=== PATIENT | female | born 1995 | race Caucasian/White ===

== ENCOUNTER 2023-01-22 08:39 | Inpatient (IN) | payer BC, SELFPAY ==
[2023-01-22] VITALS (57 sets, daily range): BP systolic 82–130; BP diastolic 49–102; PULSE 76–107; RESP 15–36; TEMP 30.9–36.5; O2SAT 95–100; BMI 19.3
--- NOTE | ~2023-01-22 | CT_ITS ---
EXAMINATION: CTA chest PE abdomen pel DATE: 01/22/2023 10:19 INDICATION: Patient found unresponsive TECHNIQUE: Computed tomography angiography (CTA) of the chest was performed with 100 mL Omnipaque-350 intravenous contrast timed to evaluate the pulmonary arteries. Subsequent postcontrast images of the abdomen and pelvis are obtained. Coronal maximum intensity projection 3D-reconstructions were create d by the technologist. The dose-length product (DLP) was 661.48 mGy-cm. Automated exposure control an d iterative reconstruction technique were employed. COMPARISON: None. FINDINGS: CTA CHEST: The pulmonary arteries are well-opacified. No pulmonary embolism is identified. There are airspace opacities and volume loss in the left lower lobe. No pleural effusion or pneumothorax. No pa thologically enlarged thoracic lymph nodes are identified. The heart size is normal. The endotracheal tube is approximately 4 cm above the jose manuel. A small amount of in subcutaneous gas in the left neck likely relates to central venous catheter insertion. ABDOMEN/PELVIS CT: There is mild periportal edema of the liver which is nonspecific. The spleen, panc reas, gallbladder, and adrenal glands are normal. The kidneys are unremarkable. No pathologically enl arged abdominal or pelvic lymph nodes are identified. There is no free intraperitoneal gas. There are gas and fluid-filled loops of mildly distended large and small bowel. There is a Almodovar catheter in t he bladder. The nasogastric tube is in the stomach. There is subcutaneous gas in the left inguinal re gion as well as gas in the left femoral vein, likely related to attempted central venous catheter ins ertion. There is a tiny focus of enhancement or hyperattenuation in the midline pelvis abutting the u rethra (image 205). IMPRESSION: 1. Volume loss and airspace opacities of the left lower lobe, likely aspiration pneumonia. 2. Mildly distended large and small bowel, likely ileus. 3. Mild periportal edema of the liver which is nonspecific. 4. Tiny focus of enhancement or hyperattenuation and midline pelvis abutting the urethra which could reflect inspissated material in a Bartholin's gland cyst or urethral diverticulum or possibly small p seudoaneurysm. 5. No pulmonary embolus identified. Reviewed, dictated and finalized at location F. REHENSIVE OPHTHALMOLOGIST IMPRESSION: 1. Volume loss and airspace opacities of the left lower lobe, likely aspiration pneumonia. 2. Mildly distended large and small bowel, likely ileus. 3. Mild periportal edema of the liver which is nonspecific. 4. Tiny focus of enhancement or hyperattenuation and midline pelvis abutting th e urethra which could reflect inspissated material in a Bartholin's gland cyst or urethral diverticulum or possibly small pseudoaneurysm. 5. No pulmonary embolus identified.
--- NOTE | ~2023-01-22 | XR_ITS ---
EXAMINATION: XR chest 1V portable INDICATION: Respiratory failure TECHNIQUE: Portable AP chest at 0522 hours COMPARISON: 01/24/2023 FINDINGS: The endotracheal tube ends approximately 4.2 cm above the jose manuel. Nasogastric tube is in th e stomach. A left internal jugular central venous catheter ends with its tip in the midsuperior vena cava. Retrocardiac airspace opacity persists but has improved.. IMPRESSION: 1. Improved retrocardiac airspace opacities, likely pneumonia. Reviewed, dictated and finalized at location F. STIGATION DIVISION LIEUTENANT
--- NOTE | ~2023-01-22 | XR_ITS ---
EXAMINATION: XR chest 1V portable INDICATION: Respiratory failure TECHNIQUE: Portable AP chest at 0446 hours COMPARISON: 01/23/2023 FINDINGS: The endotracheal tube ends approximately 4.4 cm above the jose manuel. The nasogastric tube is i n the stomach. A left internal jugular central venous catheter ends with its tip in the midsuperior v asif cava. There are retrocardiac airspace opacities. No pleural effusion or pneumothorax. The cardiom ediastinal silhouette is normal. IMPRESSION: 1. Retrocardiac airspace opacities, likely pneumonia. Reviewed, dictated and finalized at location F. GEOGRAPHER
--- NOTE | ~2023-01-22 | CT_ITS ---
EXAMINATION: CT cervical spine wo con DATE: 01/22/2023 10:17 INDICATION: Unresponsive, possible fall TECHNIQUE: Computed tomography (CT) of the cervical spine was performed without intravenous contrast. The dose-length product (DLP) was 176.22 mGy-cm. Automated exposure control and iterative reconstruc tion technique were employed. COMPARISON: None FINDINGS: Bone alignment is normal. There is reversal of the normal cervical lordosis. The odontoid p rocess is intact. There is no fracture. The vertebral body heights and intervertebral disc spaces are normal. A small amount of subcutaneous gas in the left neck is likely related to central line insert ion. IMPRESSION: 1. No acute osseous abnormality. Reviewed, dictated and finalized at location F. RAFT ENGINE MECHANIC SUPERVISOR
--- NOTE | ~2023-01-22 | XR_ITS ---
EXAMINATION: XR chest ET placement INDICATION: Respiratory failure TECHNIQUE: Portable AP chest at 0912 hours COMPARISON: 08/03/2003 FINDINGS: The endotracheal tube ends approximately 4.4 cm above the jose manuel. A left internal jugular c entral venous catheter ends with its tip in the superior vena cava. The tip of the nasogastric tube i nto the distal esophagus. The tube has been advanced into the stomach at the time of interpretation. The lungs are free of acute opacities. No pleural effusion or pneumothorax. The cardiomediastinal yanna houette is normal. IMPRESSION: 1. No acute cardiopulmonary abnormality. Endotracheal tube in adequate position. Reviewed, dictated and finalized at location F. LLATE CONFEREE IMPRESSION: 1. No acute cardiopulmonary abnormality. Endotracheal tube in adequate position .
--- NOTE | ~2023-01-22 | XR_ITS ---
EXAMINATION: XR chest 1V portable INDICATION: Respiratory failure TECHNIQUE: Portable AP chest at 0530 hours COMPARISON: 01/22/2023 FINDINGS: The endotracheal tube ends approximately 4.3 cm above the jose manuel. The nasogastric tube is f ollowed as far as the stomach. Its tip is beyond the inferior margin of the radiograph. A left internal medicine nurse practitioner al jugular central venous catheter ends with its tip in the superior vena cava. The lungs are free of acute opacities. No pleural effusion or pneumothorax. IMPRESSION: 1. No acute cardiopulmonary abnormality. Reviewed, dictated and finalized at location F. ONAL TRUCK DRIVER
--- NOTE | ~2023-01-22 | CT_ITS ---
EXAMINATION: CT brain wo con INDICATION: Altered mental status COMPARISON: 01/22/2023 TECHNIQUE: Standard unenhanced head CT. The dose-length product (DLP) was 605.33 mGy-cm. The mA was a djusted according to patient size. Iterative reconstruction technique was employed. FINDINGS: There is widespread cerebral edema and loss of almeida-white matter differentiation is the hosea ateral parietal occipital lobes, the frontal lobes, and posteriorly in the temporal lobes. There is m ass effect on the posterior horns of the lateral ventricles. There is no midline shift. The basal cis terns are patent. The orbits are normal. There is mild mucosal thickening of the paranasal sinuses. IMPRESSION: 1. Interval development of widespread cerebral edema and loss of almeida-white matter differentiation as detailed above, consistent with anoxic brain injury. These findings were discussed with Dr. Bruce parnell MD at 0950 hours on 01/25/2023. Reviewed, dictated and finalized at location A. ROOM COURIER IMPRESSION: 1. Interval development of widespread cerebral edema and loss of almeida-white mat ter differentiation as detailed above, consistent with anoxic brain injury. The se findings were discussed with Dr. Bruce Gomes MD at 0950 hours on 3.
--- NOTE | ~2023-01-22 | CT_ITS ---
EXAMINATION: CT brain wo con INDICATION: Unresponsive COMPARISON: None TECHNIQUE: Standard unenhanced head CT. The dose-length product (DLP) was 1059.33 mGy-cm. The mA was adjusted according to patient size. Iterative reconstruction technique was employed. FINDINGS: Motion artifact limits the examination. No intracranial hemorrhage, acute infarction, or ab normal mass lesion. The ventricles are normal. No abnormal mass effect or midline shift. The almeida-whi te matter differentiation is normal. The basal cisterns are patent. The orbits are normal. The parana luc sinuses, mastoids and calvarium are normal. IMPRESSION: 1. No acute intracranial abnormality identified, motion artifact limits the examination. Reviewed, dictated and finalized at location F. TIONAL EVALUATOR IMPRESSION: 1. No acute intracranial abnormality identified, motion artifact limits the exa mination.
--- NOTE | ~2023-01-22 | XR_ITS ---
EXAMINATION: XR tibia fibula LT 2V INDICATION: Status post intraosseous medication administration TECHNIQUE: Two views of the left tibia and fibula are obtained. COMPARISON: None available FINDINGS: No fracture, dislocation, or subluxation. The bones, soft tissues, and joint spaces are nor mal. IMPRESSION: 1. No acute osseous abnormality. Reviewed, dictated and finalized at location F. MOTOR OPERATOR
--- NOTE | ~2023-01-22 | XR_ITS ---
EXAMINATION: XR abdomen gastric tube insert INDICATION: Respiratory failure TECHNIQUE: Portable AP KUB-NG at 0912 hours COMPARISON: None available FINDINGS: The NG tube is in the stomach. There are gas-filled loops of nondilated large and small bow el. The lung bases are clear. IMPRESSION: 1. NG tube in the stomach. Reviewed, dictated and finalized at location F. TIONSHIP EXECUTIVE IMPRESSION: 1. NG tube in the stomach.
--- NOTE | 2023-01-22 09:01 | ECG_ITS ---
Measurements Intervals [place] Rate: 78 P: 77 SC: 179 QRS: 3 QRSD: 113 T: 10 QT: 455 QTc: 521 Interpretive Statements SINUS RHYTHM INCOMPLETE RIGHT BUNDLE BRANCH BLOCK BORDERLINE T WAVE ABNORMALITY- INFERIOR LEADS PROLONGED QT INTERVAL BASELINE ARTIFACT- I, II, III, AVF, V6 ABNORMAL ECG NO PREVIOUS ECG AVAILABLE FOR COMPARISON Electronically Signed On 01-22-2023 9:45:52 TINSEL MACHINE OPERATOR by Jason Ann D.O.
--- NOTE | 2023-01-22 09:13 | PC.NURSE ---
Per central line is OK to use
--- NOTE | 2023-01-22 09:14 | ED.GENADULT ---
HPI - General Adult General Chief complaint: Cardiac Arrest/CPR Stated complaint: cardiac arrest ROSC History of Present Illness HPI narrative: 27-year-old female presents to the emergency department after cardiac arrest and asystole. Patient was at the [facility] and had been seen 5 minutes prior. They went to check on the patient and found her unresponsive in her cell. EMS was called. Patient was treated with multiple rounds of Narcan with no response. patient was found to be in asystole and was given epi. Patient had ROSC. Mother states that the patient does have a prior history of heroin found abuse previously had an overdose due to a baggy of methamphetamine leaking in her vagina Related Data Home Medications Medication Instructions Recorded Confirmed No Home Medications 01/22/23 01/22/23 Allergies Allergy/AdvReac Type Severity Reaction Status Date / Time No Known Allergies Allergy Verified 01/22/23 10:19 Review of Systems Review of Systems: ROS unobtainable: Yes unobtainable due to mental status [facility] Past Medical History Medical History (Updated 01/22/23 @ 18:28 by Honey Fink PA-C) Asthma Surgical History Surgical History (Updated 01/22/23 @ 18:13 by Honey Fink PA-C) No history of previous surgery Family History Family History (Updated 01/22/23 @ 18:13 by Honey Fink PA-C) Other Substance abuse Social History Social History (Updated 01/22/23 @ 18:14 by Honey Fink PA-C) Social History: Surrogate medical decision maker: Marylu Gonzalez, mother ([phone]). Code status: Full code. Smoking status: Current every day smoker Alcohol intake: current Substance use: current Substance use type: marijuana, heroin and methamphetamine Other substance usage details: fentanyl last overdose 1 month ago Spiritual care concerns: No Exam Narrative: APPEARANCE: unresponsive. HEAD: normocephalic, atraumatic. EYES: fixed NOSE: Normal no drainage EARS:TMS clear with good light reflex. THROAT: Pharynx clear, no exudate. NECK: Supple. No adenopathy, no masses. RESPIRATORY: Airway patent, respirations nonlabored. Clear to auscultation bilaterally, no rales, rhonchi, wheezing. CARDIOVASCULAR: Regular rate and rhythm without murmurs rubs or gallops. ABDOMINAL: soft normal bowel sounds MUSCULOSKELETAL: Moves all extremities. Strength/ROM intact, No edema, No calf tenderness. NEURO: Alert. Cranial nerves II through XII intact. Course Course Emergency Course: 27-year-old female presenting to the emergency department after ROSC. patient was intubated upon arrival to the Emergency department. Patient did have an IO in her left tib fib and a central line was placed in her left IJ. X-ray confirmed placement of the central line and the ET tube. Vaginal speculum exam showed no foreign bodies within the vagina. Patient does have a history of vaginal packing with illicit substances. Patient's drug screen was positive for methamphetamine. CTA head and neck were negative. CT chest and pelvis showed possible aspiration pneumonia. CT abdomen pelvis also made reference to air within the left femoral vein. I made no attempts for central line placement other than the left IJ. case discussed with the mascara molder and with the hospitalist the patient was accepted for admission to the ICU. Vital Signs Vital signs: Vital Signs Temperature 87.6 F L 01/22/23 08:36 Pulse Rate 76 01/22/23 08:36 Respiratory Rate 15 01/22/23 08:36 Blood Pressure 82/49 L 01/22/23 08:36 Pulse Oximetry 100 01/22/23 08:36 Oxygen Delivery Bag Valve Mask 01/22/23 08:36 Oxygen Flow Rate 25 01/22/23 08:36 Temperature 97.1 F L 01/22/23 16:09 Pulse Rate 93 01/22/23 17:24 Respiratory Rate 24 H 01/22/23 17:08 Blood Pressure 114/90 01/22/23 16:09 Pulse Oximetry 100 01/22/23 17:24 Oxygen Delivery Mechanical Ventilation 01/22/23 17:2
[2023-01-22 09:26] LABS: Basophils Absolute Auto 0.1 K/mm3 (0.0-0.1); Basophils Percent Auto 0.3 % (0.2-1.2); Eosinophils Percent Auto 0.2 % (0-4.4); Hematocrit 42.9 % (37.0-47.0); Hemoglobin 12.4 g/dL (12.0-15.0); Immature Granulocyte Absolute 0.71 K/mm3 (0.00-0.031); Immature Granulocyte Percent A 2.7 % (0-0.5); Lymphocytes Absolute Auto 1.49 K/mm3 (0.9-3.2); Lymphocytes Percent Auto 5.8 % (18.3-44.2); Mean Corpuscular HGB Conc 28.9 g/dl (32-36); Mean Corpuscular Volume 103.6 fl (80-100); Mean Platelet Volume 9.9 fl (7.4-10.4); Monocytes Absolute Auto 1.2 K/mm3 (0.1-0.6); Monocytes Percent Auto 4.6 % (2.6-8.5); Neutrophils Absolute Auto 22.4 K/mm3 (1.3-6.7); Neutrophils Percent Auto 86.4 % (45.5-73.1); Platelet Count Result 265 k/mm3 (150-375); Red Blood Count 4.14 M/mm3 (4.2-5.4); White Blood Count 25.9 K/mm3 (4.5-10.0)
[2023-01-22 09:36] LABS: INR 1.6
[2023-01-22 09:37] LABS: Partial Thromboplastin Time 36.9 SECONDS (22.3-36.8)
[2023-01-22] MEDS: SODIUM CHLORIDE 0.9% IV 1,000 ML 999 ML IV CONT (09:37)
[2023-01-22 09:41] LABS: Alanine Aminotransferase 440 U/L (6-35); Albumin Level 3.6 g/dL (3.5-5.1); Alkaline Phosphatase 73 U/L (38-126); Anion Gap 26 mmol/L (8-16); Aspartate Amino Transferase 466 U/L (14-36); Bilirubin,Total 0.5 mg/dL (0.2-1.3); Blood Urea Nitrogen 22 mg/dL (7-17); CRP < 0.5 mg/dL (<1.0); Calcium 6.9 mg/dL (8.4-10.2); Carbon Dioxide 8 mmol/L (22-30); Chloride 108 mmol/L (98-107); Estimated CRCL calculation 26 ml/min; Estimated Glomerular Filt Rate 22; Glucose 139 mg/dL (65-110); Potassium 5.4 mmol/L (3.4-5.0); Sodium 142 mmol/L (137-145)
[2023-01-22 09:52] LABS: Platelet Estimate Adequate (Adequate)
--- NOTE | 2023-01-22 09:52 | ECG_ITS ---
Measurements Intervals [place] Rate: 92 P: 86 IN: 148 QRS: 27 QRSD: 141 T: -6 QT: 404 QTc: 500 Interpretive Statements SINUS RHYTHM ATRIAL TRIPLET RIGHT BUNDLE BRANCH BLOCK PROLONGED QT INTERVAL BASELINE ARTIFACT- I, II, III, AVF, V3-V6 ABNORMAL ECG COMPARED TO ECG 01/22/2023 08:49:47 RIGHT BUNDLE-BRANCH BLOCK NOW PRESENT Electronically Signed On 01-22-2023 11:04:47 BOARDING MACHINE OPERATOR by Jason Ann D.O.
[2023-01-22 09:53] LABS: Crenated RBC 2+ (NORMAL); Lactic Acid Reflex 11.7 mmol/L (0.7-2.0); Schistocytes None Seen (NORMAL); Troponin I 0.246 ng/mL (0.000-0.034)
[2023-01-22 10:10] LABS: Barbiturate Screen Urine Negative (Negative); Benzodiazepines Screen Urine Negative (Negative); Cannabinoid Screen Urine Negative (Negative); Cocaine Screen Urine Negative (Negative); Methadone Screen Urine Negative (Negative); Opiate Screen Urine Negative (Negative); Phencyclidine Screen Urine Negative (Negative)
[2023-01-22 10:10] LABS: Erythrocyte Sedimentation Rate 2 mm/hr (0-20); Magnesium 2.2 mg/dL (1.6-2.3)
[2023-01-22 10:15] LABS: Appearance Urine Cloudy (Clear); Bacteria Urine 4+ /hpf; Bilirubin Urine Negative (Negative); Blood Urine 3+ (Negative); Color Urine Yellow (Yellow); Glucose Urine UA Trace mg/dL (Negative); Ketones Urine Trace mg/dL (Negative); Leukocyte Esterase Ur 2+ LEU/UL (Negative); Need Manual Microscopic Reviewed; Nitrate Urine Negative (Negative); Protein Urine 3+ mg/dL (Negative); RBC Urine 0-2 /hpf (0-2); Specific Grav Ur 1.012 (1.001-1.035); Squamous Epithelial Cell Urine Few /hpf (Few); Urobilinogen Urine 0.2 mg/dL (<2.0); WBC Urine 51-100 /hpf
[2023-01-22 10:17] LABS: Add Urine Microscopic? YES
[2023-01-22] MEDS: PROPOFOL IV EMULSION 100 ML 1.64 MG IV CONT (10:31)
[2023-01-22 10:34] LABS: Procalcitonin 2.5 ng/mL
[2023-01-22] MEDS: SODIUM CHLORIDE 0.9% IV 1,600 ML/1,000 ML BAG 999 ML IV CONT ×2 (10:38→12:13)
[2023-01-22] MEDS: RAPID SEQUENCE INTUBATION KIT 1 EACH (10:39)
[2023-01-22 10:40] LABS: Triglycerides 65 mg/dL (<150)
[2023-01-22] MEDS: CALCIUM GLUC 2,000 MG/NS 100ML 2,000 MG/100 ML BAG 100 MG IVPB (10:40)
[2023-01-22 10:54] LABS: Creatine Kinase 4239 U/L (30-135)
[2023-01-22 11:02] LABS: Glucose Point of Care 122 mg/dl (65-105)
--- NOTE | 2023-01-22 11:03 | PC.NURSE ---
Upon arrival pt had Igel in place with bag valve mask. 0842: Blood glucose 132 0844: Femoral pulse check, weak 0845:20 Etomidate 0845: 100 Succlycoline 0846: ETT placed 7.5 22 0849: OG placed 55 0855: Temp Cath placement 0900: Central line placement 0904: Labs drawn 0920: IO Removal
[2023-01-22 11:04] LABS: Amphetamine Screen Urine Positive (Negative)
[2023-01-22 11:09] LABS: Alveolar/Arterial O2 Gradient 351.6 mmHg; Base Excess ABG -19.9 mEq/l (+/-2.0); Carboxyhemoglobin 0.2 % THb (0-2.0); Fractional Inspired Oxygen 100 %; HCO3 ABG 8.9 mEq/l (22.0-26.0); Methemoglobin ABG 0.4 %THb (0-1.5); Oxygen Content ABG 20.5 %vol (16.0-22.0); Oxygen Saturation ABG 99.6 % (95.0-100.0); Oxyhemoglobin 98.6 % THb (90.0-100.0); PCO2 ABG 30.6 mmHg (35.0-45.0); PO2 ABG 374.2 mmHg (80.0-100.0); PO2 FiO2 Ratio Arterial Blood 3.74 %; Reduced Hemoglobin 0.8 %THb (0-5.0); Total Hemoglobin 14.1 g/dL (12.0-18.0)
[2023-01-22 11:11] LABS: Device VENTILATOR; Site Drawn RIGHT BRACHIAL; pH ABG 7.082 (7.350-7.450)
[2023-01-22 11:12] LABS: Arterial Blood Gas PEEP 5 cmH2O; Arterial Blood Gas Tidal Volume 350 ml; Arterial Blood Gas Vent Mode CMV; Arterial Blood Gas Ventilator rate 20 /MIN
[2023-01-22 11:19] LABS: Glucose Point of Care 112 mg/dl (65-105)
[2023-01-22] MEDS: metroNIDAZOLE 500 MG/ISO 100ML 500 MG/100 ML BAG 100 MG IVPB (12:16)
[2023-01-22 12:23] LABS: Reflex Lactic Acid Yes or No Add Lactic
--- NOTE | 2023-01-22 12:45 | ADMGEN ---
This patient, Diane Gonzalez, was admitted to Intensive Care Unit-5. Patient/family oriented to hospital policies and general routines including ID bracelet, bed and alarms, visiting hours, pain management, procedures, bathroom and other care routines, personal items, smoking policy, room service/diet, and visiting hours. Information on how to activate the Rapid Response Team has been discussed. Patient/Family are encouraged to report perceived risks to care and to ask questions if they do not understand what they are told or what they should do.
--- NOTE | 2023-01-22 13:16 | WPDCNINT ---
Assessment and Plan Assessment and plan (1) Cardiac arrest: Code(s): I46.9 - Cardiac arrest, cause unspecified Status: Acute Assessment and Plan: Unclear etiology but most likely drug abuse or overdose. Patient was also hypoglycemic at the presentation side although the hypoglycemia has resolved at this time. CTA of the chest is negative for PE EKG reviewed shows prolonged QT. will repeat EKG this time to reassess QT interval Treatment of sepsis as below Check echocardiogram, aspirin TTM protocol for anoxic brain injury ICU telemetry monitoring (2) Sepsis: Code(s): A41.9 - Sepsis, unspecified organism Status: Acute Assessment and Plan: Sepsis secondary to aspiration pneumonia and UTI Continue IV fluids. Not requiring vasopressors at this time Urine and blood culture sent Empiric Zosyn to cover for both (3) Aspiration pneumonia: Code(s): J69.0 - Pneumonitis due to inhalation of food and vomit Status: Acute Assessment and Plan: See above (4) Anoxic brain injury: Code(s): G93.1 - Anoxic brain damage, not elsewhere classified Status: Acute Assessment and Plan: Patient comatose on arrival to ER. On holding sedation patient does not do any purposeful movement suggestive of anoxic brain injury. Although there is no proven benefit TTM protocol in in cardiac arrest from non shockable rhythm will proceed with TTM protocol and keep temperature less than 36 C for next 24 hours as long as patient tolerates. Propofol ordered for sedation. May need paralytic Will reassess after rewarming (5) Acute kidney injury: Code(s): N17.9 - Acute kidney failure, unspecified Status: Acute Assessment and Plan: Acute kidney injury likely secondary to cardiac arrest hypotension and rhabdomyolysis Check urine electrolytes CT scan of abdomen does not show any hydronephrosis Monitor urine output electrolytes and creatinine IV fluids for the rhabdomyolysis Bicarb for metabolic acidosis (6) Rhabdomyolysis: Code(s): M62.82 - Rhabdomyolysis Status: Acute Assessment and Plan: See above (7) Polysubstance abuse: Code(s): F19.10 - Other psychoactive substance abuse, uncomplicated Status: Acute Assessment and Plan: History of opioid abuse and urine drug screen positive for amphetamines Monitor at this time supportive care (8) Elevated troponin: Code(s): R79.89 - Other specified abnormal findings of blood chemistry Status: Acute Assessment and Plan: Elevated troponin likely secondary to cardiac arrest CPR and respiratory failure EKG reviewed Add aspirin Check echocardiogram (9) Metabolic acidosis: Code(s): E87.20 - Acidosis, unspecified Status: Acute Assessment and Plan: IV fluids with bicarb (10) Electrolyte abnormality: Code(s): E87.8 - Other disorders of electrolyte and fluid balance, not elsewhere classified Status: Acute Assessment and Plan: Elevated potassium treated with IV fluids. Recheck level now IV fluids changed bicarb due to hyperchloremia Plan DVT prophylaxis -Lovenox Stress ulcer prophylaxis -Protonix Nutrition - NPO Code Status - Full Code Total Critical Care Time - minutes Due to a high probability of clinically significant, life threatening deterioration, the patient required my highest level of preparedness to intervene emergently and I personally spent this critical care time directly and personally managing the patient. This critical care time included obtaining a history; examining the patient; pulse oximetry; ordering and review of studies; arranging urgent treatment with development of a management plan; evaluation of patient's response to treatment; frequent reassessment; and discussions with other providers. It was exclusive of separately billable procedures and treating other patients and teaching time. Please see Assessment and Plan s
[2023-01-22 13:17] LABS: Troponin I 0.532 ng/mL (0.000-0.034)
--- NOTE | 2023-01-22 13:32 | PM.IMHP ---
H&P: HPI History of Present Illness Date/Time: 01/22/23 13:32 Chief Complaint: Cardiac arrest. Narrative: This is a 27-year-old female with history of substance abuse (IV fentanyl and heroin, positive for methamphetamines today) who presented to the emergency department via EMS from [facility] in cardiac arrest. According to the patient's mother, she was apparently taken to [facility] last night on a warrant hold. This morning at breakfast time she was reportedly in her usual state of health and about 15 minutes thereafter she was found unresponsive and pulseless. CPR was initiated immediately and she was given Narcan and epinephrine prior to EMS arrival. She received 2 further rounds of epinephrine per EMS before return of spontaneous circulation. Supraglottic airway and left leg IO were placed. She was started on D10 for glucose of 23. Vaginal speculum exam showed no evidence of foreign body (reported history of intravaginal body packing of illicit substances). In the ED: Vital signs on arrival include a blood pressure of 82/49, pulse 76, and a temperature 87.6. Labs were significant for WBC count of 25.9, potassium 5.4, carbon dioxide 8, BUN 22, creatinine 2.60, lactic acid 11.7, AST 466, ALT 440, total CK 4239, troponin 0.246. ABG showed a pH of 7.082, pCO2 30.6, HCO3 8.9. Drug screen was positive for amphetamines. UA was positive for 3+ blood, 2+ leukocyte esterase, 51 to 100 wbc's, 4+ bacteria. Head and cervical spine CTs were negative for acute findings. CTA of the chest, abdomen, and pelvis showed likely aspiration pneumonia and findings suggestive of ileus. NG tube was inserted. She received 1 g ceftriaxone, 500 mg metronidazole, and 1600 mL of normal saline. She is being admitted to the ICU in the setting. Review of Systems Review of Systems: Unable to obtain given current clinical condition as above. [facility] Past Medical History Medical History (Updated 01/22/23 @ 18:28 by Honey Fink PA-C) Asthma Surgical History Surgical History (Updated 01/22/23 @ 18:13 by Honey Fink PA-C) No history of previous surgery Family History Family History (Updated 01/22/23 @ 18:13 by Honey Fink PA-C) Other Substance abuse Social History Social History (Updated 01/22/23 @ 18:14 by Honey Fink PA-C) Social History: Surrogate medical decision maker: Marylu Gonzaelz, mother ([phone]). Code status: Full code. Smoking status: Current every day smoker Alcohol intake: current Substance use: current Substance use type: marijuana, heroin and methamphetamine Other substance usage details: fentanyl last overdose 1 month ago Spiritual care concerns: No Meds Home Medications and Allergies Home Medications Medication Instructions Recorded Confirmed Type No Home Medications 01/22/23 01/22/23 History Allergies Allergy/AdvReac Type Severity Reaction Status Date / Time No Known Allergies Allergy Verified 01/22/23 10:19 Vital Signs Vital Signs - 24 hr 01/22/23 08:36 01/22/23 09:14 01/22/23 09:16 Temperature 87.6 F L Pulse Rate 76 77 Respiratory Rate 15 Blood Pressure 82/49 L Pulse Oximetry 100 100 Oxygen Delivery Bag Valve Mask Bag Valve Mask Mechanical Ventilation Oxygen Flow Rate 25 Fraction of Inspired Oxygen 100 01/22/23 10:31 01/22/23 10:56 01/22/23 09:31 Temperature 92.1 F L 89.7 F L Pulse Rate 92 89 77 Respiratory Rate 19 21 H 32 H Blood Pressure 90/51 L 89/62 L Pulse Oximetry 100 100 Oxygen Delivery Oxygen Flow Rate Fraction of Inspired Oxygen 01/22/23 09:46 01/22/23 11:02 01/22/23 11:10 Temperature 89.6 F L 92.2 F L 92.4 F L Pulse Rate 84 88 88 Respiratory Rate 24 H 26 H 28 H Blood Pressure 96/65 L 117/96 H Pulse Oximetry 100 100 100 Oxygen Delivery Oxygen Flow Rate Fraction of Inspired Oxygen 01/22/23 11:15 01/22/23 11:16 01/22/23 11:21 Temperature 92.6 F L 92.7 F L 92.8 F L Pulse Rate 89 89 91 Respiratory R
[2023-01-22 13:36] LABS: Alanine Aminotransferase 495 U/L (6-35); Albumin Level 3.6 g/dL (3.5-5.1); Alkaline Phosphatase 75 U/L (38-126); Anion Gap 19 mmol/L (8-16); Aspartate Amino Transferase 677 U/L (14-36); Bilirubin,Total 0.8 mg/dL (0.2-1.3); Blood Urea Nitrogen 25 mg/dL (7-17); Calcium 7.5 mg/dL (8.4-10.2); Carbon Dioxide 11 mmol/L (22-30); Chloride 113 mmol/L (98-107); Creatine Kinase 8333 U/L (30-135); Estimated CRCL calculation 30 ml/min; Estimated Glomerular Filt Rate 27; Glucose 138 mg/dL (65-110); Sodium 143 mmol/L (137-145)
--- NOTE | 2023-01-22 13:39 | ECG_ITS ---
Measurements Intervals [place] Rate: 107 P: 85 AR: 132 QRS: 25 QRSD: 98 T: 31 QT: 330 QTc: 440 Interpretive Statements SINUS TACHYCARDIA INCOMPLETE RIGHT BUNDLE BRANCH BLOCK BASELINE ARTIFACT- I, III, AVR, AVL, AVF, V4-V6 ABNORMAL ECG COMPARED TO ECG 01/22/2023 10:39:49 SINUS TACHYCARDIA NOW PRESENT INCOMPLETE RIGHT BUNDLE-BRANCH BLOCK NOW PRESENT PROLONGED QT INTERVAL NO LONGER PRESENT Electronically Signed On 01-22-2023 20:00:11 CTO by Jason Ann D.O.
[2023-01-22 13:47] LABS: Hepatitis B Surface Antigen Negative (Negative)
[2023-01-22 13:48] LABS: Base Excess ABG -13.8 mEq/l (+/-2.0); Fractional Inspired Oxygen 60 %; HCO3 ABG 11.5 mEq/l (22.0-26.0); Oxygen Content ABG 20.4 %vol (16.0-22.0); Oxygen Saturation ABG 99.5 % (95.0-100.0); Oxyhemoglobin 98.2 % THb (90.0-100.0); PCO2 ABG 26.3 mmHg (35.0-45.0); PO2 ABG 247.9 mmHg (80.0-100.0); PO2 FiO2 Ratio Arterial Blood 4.13 %; Total Hemoglobin 14.4 g/dL (12.0-18.0)
[2023-01-22 13:53] LABS: HAV RESULT Negative (Negative); Hepatitis B Core IgM Result Negative (Negative)
[2023-01-22 13:56] LABS: Arterial Blood Gas PEEP 5 cmH2O; Arterial Blood Gas Tidal Volume 350 ml; Arterial Blood Gas Vent Mode CMV; Arterial Blood Gas Ventilator rate 20 /MIN; Device VENTILATOR; Modified Allen's Test Pass; Site Drawn RIGHT RADIAL; pH ABG 7.258 (7.350-7.450)
[2023-01-22 13:57] LABS: Alanine Aminotransferase 530 U/L (6-35); Albumin Level 3.3 g/dL (3.5-5.1); Alkaline Phosphatase 66 U/L (38-126); Anion Gap 17 mmol/L (8-16); Bilirubin,Total 0.6 mg/dL (0.2-1.3); Blood Urea Nitrogen 26 mg/dL (7-17); Calcium 7.3 mg/dL (8.4-10.2); Carbon Dioxide 13 mmol/L (22-30); Chloride 114 mmol/L (98-107); Estimated CRCL calculation 33 ml/min; Estimated Glomerular Filt Rate 30; Glucose 122 mg/dL (65-110); Potassium 4.2 mmol/L (3.4-5.0); Sodium 144 mmol/L (137-145)
[2023-01-22 13:58] LABS: Lactic Acid Reflex 4.4 mmol/L (0.7-2.0)
[2023-01-22 14:05] LABS: Aspartate Amino Transferase 796 U/L (14-36)
[2023-01-22 14:05] LABS: Hepatitis C Virus Antibody Negative (Negative)
[2023-01-22] MEDS: ASPIRIN 325 MG TABLET FEED TUBE (14:18)
[2023-01-22] MEDS: CENTRAL LINE FLUSH 10 ML IV PUSH ×2 (14:21→21:31)
[2023-01-22] MEDS: SODIUM BICARBONATE 8.4% 150 MEQ in WATER, STERILE FOR INJECTION 950 ML IV CONT ×2 (14:23→21:31)
[2023-01-22] MEDS: PIPERACILLN/TAZ 3.375GM/NS50ML 3.375 GM/50 ML BAG IVPB (14:29)
[2023-01-22 14:30] LABS: Glucose Point of Care 88 mg/dl (65-105)
[2023-01-22 14:33] LABS: Thyroid Stimulating Hormone Reflex 0.646 uIU/mL (0.465-4.68)
[2023-01-22 14:34] LABS: Creatinine Urine 93.5 mg/dL
[2023-01-22 14:49] LABS: Sodium Urine Random 126 meq/L
[2023-01-22] MEDS: levETIRAcetam 1000MG/NACL100ML 1,000 MG/100 ML BAG 400 MG IVPB ×2 (15:15→20:14)
[2023-01-22 16:42] LABS: Glucose Point of Care 82 mg/dl (65-105)
[2023-01-22] MEDS: MIDAZOLAM 100MG/NS 100ML(*CRX) 100 MG/100 ML BAG IV CONT (16:55)
[2023-01-22] MEDS: PROPOFOL IV EMULSION 100 ML 16.38 MG IV CONT ×2 (17:08→23:09)
[2023-01-22] MEDS: PIPERACILLIN/TAZ 2.25G/NS 50ML 2.25 GM/50 ML BAG IVPB ×2 (18:12→23:24)
[2023-01-22 18:17] LABS: Glucose Point of Care 87 mg/dl (65-105)
[2023-01-22 18:46] LABS: Anion Gap 14 mmol/L (8-16); Blood Urea Nitrogen 29 mg/dL (7-17); Calcium 7.6 mg/dL (8.4-10.2); Carbon Dioxide 18 mmol/L (22-30); Chloride 111 mmol/L (98-107); Estimated CRCL calculation 39 ml/min; Estimated Glomerular Filt Rate 36; Glucose 99 mg/dL (65-110); Lactic Acid Reflex 2.7 mmol/L (0.7-2.0); Phosphorus 4.2 mg/dL (2.5-4.5); Potassium 3.6 mmol/L (3.4-5.0); Sodium 143 mmol/L (137-145); Triglycerides 70 mg/dL (<150)
--- NOTE | 2023-01-22 18:56 | PC.NURSE ---
Mom wants Diane to be a confidential patient. Apparently the mom's Ex-boyfriend, Kip Jc, pretends to be the patient's father even thought they have DNA evidence that he is not. Patient's biological father, Pablo Myers is currently in long term.
[2023-01-22] MEDS: DEXTROSE 50% 25 GM/50 ML SYRINGE IV PUSH (20:00)
[2023-01-22] MEDS: MINERAL OIL/WHITE PETROLATUM OINTMENT 1 APPLIC EACH EYE (20:14)
[2023-01-22 20:22] LABS: Glucose Point of Care 62 mg/dl (65-105)
[2023-01-22 20:22] LABS: Glucose Point of Care 125 mg/dl (65-105)
[2023-01-22 21:05] LABS: Glucose Point of Care 105 mg/dl (65-105)
[2023-01-22 22:12] LABS: Glucose Point of Care 91 mg/dl (65-105)
[2023-01-22] MEDS: SODIUM BICARBONATE 8.4% 100 MEQ in DEXTROSE 5% 1,000 ML 1,000 ML 150 MEQ IV CONT (22:53)
[2023-01-23] VITALS (56 sets, daily range): BP systolic 108–136; BP diastolic 75–100; PULSE 75–112; RESP 16–24; TEMP 34.2–37.2; O2SAT 96–100; BMI 22.3
[2023-01-23 00:38] LABS: Glucose Point of Care 76 mg/dl (65-105)
[2023-01-23 00:38] LABS: Glucose Point of Care 115 mg/dl (65-105)
[2023-01-23 01:08] LABS: Glucose Point of Care 91 mg/dl (65-105)
[2023-01-23 01:43] LABS: Lactic Acid Reflex 3.2 mmol/L (0.7-2.0)
[2023-01-23 02:19] LABS: Glucose Point of Care 103 mg/dl (65-105)
[2023-01-23] MEDS: PROPOFOL IV EMULSION 100 ML 16.38 MG IV CONT ×4 (04:11→22:37)
[2023-01-23 04:32] LABS: Reflex Lactic Acid Yes or No Add Lactic
[2023-01-23 04:47] LABS: Glucose Point of Care 121 mg/dl (65-105)
[2023-01-23 04:47] LABS: Glucose Point of Care 104 mg/dl (65-105)
[2023-01-23 05:09] LABS: Glucose Point of Care 121 mg/dl (65-105)
[2023-01-23] MEDS: PIPERACILLIN/TAZ 2.25G/NS 50ML 2.25 GM/50 ML BAG IVPB (05:12)
[2023-01-23] MEDS: CENTRAL LINE FLUSH 10 ML IV PUSH ×3 (05:13→21:02)
[2023-01-23 05:15] LABS: Basophils Percent Auto 0.2 % (0.2-1.2); Eosinophils Percent Auto 0.2 % (0-4.4); Hemoglobin 13.7 g/dL (12.0-15.0); Immature Granulocyte Absolute 0.04 K/mm3 (0.00-0.031); Immature Granulocyte Percent A 0.3 % (0-0.5); Lymphocytes Absolute Auto 1.39 K/mm3 (0.9-3.2); Lymphocytes Percent Auto 11.4 % (18.3-44.2); Mean Corpuscular HGB Conc 33.4 g/dl (32-36); Mean Corpuscular Hemoglobin 30.2 pg (26-34); Mean Corpuscular Volume 90.5 fl (80-100); Mean Platelet Volume 10.5 fl (7.4-10.4); Monocytes Absolute Auto 0.5 K/mm3 (0.1-0.6); Monocytes Percent Auto 3.7 % (2.6-8.5); Neutrophils Absolute Auto 10.3 K/mm3 (1.3-6.7); Neutrophils Percent Auto 84.2 % (45.5-73.1); Platelet Count Result 204 k/mm3 (150-375); Red Blood Count 4.53 M/mm3 (4.2-5.4); Red Cell Distribution Width 13.6 % (11.5-14.5); White Blood Count 12.2 K/mm3 (4.5-10.0)
[2023-01-23 05:26] LABS: INR 1.4; Lactic Acid Reflex 2.6 mmol/L (0.7-2.0); Prothrombin Time 17.8 Seconds (11.1-14.7)
[2023-01-23 05:27] LABS: Partial Thromboplastin Time 25.7 SECONDS (22.3-36.8)
[2023-01-23 05:27] LABS: Alveolar/Arterial O2 Gradient 88.8 mmHg; Base Excess ABG 2.8 mEq/l (+/-2.0); Carboxyhemoglobin 0.1 % THb (0-2.0); Fractional Inspired Oxygen 30 %; HCO3 ABG 23.3 mEq/l (22.0-26.0); Methemoglobin ABG 0.3 %THb (0-1.5); Oxygen Content ABG 20.1 %vol (16.0-22.0); Oxygen Saturation ABG 98.8 % (95.0-100.0); Oxyhemoglobin 97.8 % THb (90.0-100.0); PCO2 ABG 25.8 mmHg (35.0-45.0); PO2 ABG 117.9 mmHg (80.0-100.0); PO2 FiO2 Ratio Arterial Blood 3.93 %; Reduced Hemoglobin 1.8 %THb (0-5.0); Total Hemoglobin 14.5 g/dL (12.0-18.0)
[2023-01-23 05:28] LABS: Device VENTILATOR; Site Drawn RIGHT BRACHIAL; pH ABG 7.574 (7.350-7.450)
[2023-01-23 05:29] LABS: Arterial Blood Gas PEEP 5 cmH2O; Arterial Blood Gas Tidal Volume 350 ml; Arterial Blood Gas Vent Mode CMV; Arterial Blood Gas Ventilator rate 24 /MIN
[2023-01-23 05:31] LABS: Anion Gap 8 mmol/L (8-16); Blood Urea Nitrogen 28 mg/dL (7-17); Calcium 7.5 mg/dL (8.4-10.2); Carbon Dioxide 26 mmol/L (22-30); Chloride 105 mmol/L (98-107); Estimated CRCL calculation 59 ml/min; Estimated Glomerular Filt Rate 60; Glucose 112 mg/dL (65-110); Phosphorus 2.9 mg/dL (2.5-4.5); Potassium 2.5 mmol/L (3.4-5.0); Sodium 139 mmol/L (137-145)
[2023-01-23 05:44] LABS: Magnesium 1.6 mg/dL (1.6-2.3); Phosphorus 2.9 mg/dL (2.5-4.5)
[2023-01-23 05:57] LABS: Creatine Kinase 9198 U/L (30-135)
[2023-01-23] MEDS: MAGNESIUM SULF 2 GM/WATER 50ML 2 GM/50 ML BAG IVPB (06:36)
[2023-01-23] MEDS: KCL 40 MEQ/WATER 100 ML 100 ML 25 ML IVPB (06:37)
[2023-01-23] MEDS: POTASSIUM CHLORIDE 20 MEQ PACKET (FOR LIQUID) 40 MEQ FEED TUBE (06:37)
[2023-01-23] MEDS: KCL 20 MEQ/D5/0.45% SOD CHL 1,000 ML 125 ML IV CONT ×3 (06:45→21:56)
[2023-01-23 07:06] LABS: Glucose Point of Care 90 mg/dl (65-105)
[2023-01-23 07:06] LABS: Glucose Point of Care 95 mg/dl (65-105)
--- NOTE | 2023-01-23 07:07 | PHAR ---
CRCL 59 ML/MIN. ZOSYN DOSE INCREASED TO 3.375 GM Q6HR
--- NOTE | 2023-01-23 07:39 | ECG_ITS ---
Measurements Intervals [place] Rate: 94 P: 76 LA: 135 QRS: 18 QRSD: 97 T: 20 QT: 385 QTc: 484 Interpretive Statements SINUS RHYTHM INCOMPLETE RIGHT BUNDLE BRANCH BLOCK BORDERLINE T WAVE ABNORMALITY- INFERIOR LEADS BORDERLINE ECG COMPARED TO ECG 01/22/2023 14:11:46 SINUS RHYTHM NOW PRESENT Electronically Signed On 01-23-2023 10:34:42 SANE RN by Jason Ann D.O.
--- NOTE | 2023-01-23 07:42 | P.PNIM_ITS ---
Progress Note: A&P Assessment and Plan (1) Cardiac arrest: Code(s): I46.9 - Cardiac arrest, cause unspecified Status: Acute (2) Sepsis: Code(s): A41.9 - Sepsis, unspecified organism Status: Acute (3) Aspiration pneumonia: Code(s): J69.0 - Pneumonitis due to inhalation of food and vomit Status: Acute (4) Anoxic brain injury: Code(s): G93.1 - Anoxic brain damage, not elsewhere classified Status: Acute Plan (1) Cardiac arrest: ?Code(s): I46.9 - Cardiac arrest, cause unspecified ?Status:?Acute ?Assessment and Plan: Etiology unclear but suspect related to drug abuse/overdose. Unclear how long she was down; could be up to 15 minutes. * ROSC achieved after 2 rounds of CPR and epinephrine. * Chest CTA was negative for pulmonary embolism. * QT was prolonged on initial EKG and will be monitored. * Echocardiogram ordered for tomorrow. * She has been started on targeted temperature management per slots manager. 01/23: on TTM per slots manager. Appreciate consultation and recommendations (2) Acute respiratory failure: ?Code(s): J96.00 - Acute respiratory failure, unspecified whether with hypoxia or hypercapnia ?Status:?Acute ?Assessment and Plan: Secondary to aspiration pneumonia and arrest. * Intubated and on mechanical ventilation per slots manager. 01/23: Intubated on mechanical ventilation. Appreciate slots manager consultation Had a respiratory alkalosis due to hyperventilation from previous vent settings. rate on vent was dropped from 24 to 16. now repeat abg tbd. paralyzed and breathing at 16 in sync with vent. flow volume loops show closed breathing pattern without breath stacking peep 5, rate 16, tv 350, fi 02 0.30, with abg o2 sat ~99% on versed, cisatricurium, and propofol drips normotensive (3) Anoxic brain injury: ?Code(s): G93.1 - Anoxic brain damage, not elsewhere classified ?Status:?Acute ?Assessment and Plan: Findings are concerning for anoxic brain injury given lack of purposeful movement. * Currently on TTN per slots manager as detailed above. * Reassess neurologic status after warming. (4) Sepsis: ?Code(s): A41.9 - Sepsis, unspecified organism ?Status:?Acute ?Assessment and Plan: Secondary to aspiration pneumonia and urinary tract infection. * Blood pressures are stable, not requiring vasopressors at this time. * Continue empiric Zosyn pending urine and blood cultures. 01/23: wbc trending down on zosyn. ct. (5) Aspiration pneumonia: ?Code(s): J69.0 - Pneumonitis due to inhalation of food and vomit ?Status:?Acute ?Assessment and Plan: CT scan shows findings concerning for aspiration pneumonia. * Continue Zosyn as above. * Send sputum for culture. 01/23: ct zosyn. pending sputum cx (6) Urinary tract infection: ?Code(s): N39.0 - Urinary tract infection, site not specified ?Status:?Acute ?Assessment and Plan: Urine is positive for 4+ bacteria, leukocyte esterase, and increased number of WBCs. * Continue Zosyn pending urine culture. (7) Acute kidney injury: ?Code(s): N17.9 - Acute kidney failure, unspecified ?Status:?Acute ?Assessment and Plan: Due to a combination of factors including cardiac arrest, hypotension, and rhabdomyolysis. * No hydronephrosis noted on CT scan. * Almodovar catheter inserted for strict I/O. * On bicarbonate drip for rhabdomyolysis. 01/23: elevated cr resolving. 1.10 today (8) Rhabdomyolysis: ?Code(s): M62.82 - Rhabdomyolysis ?S
--- NOTE | 2023-01-23 07:42 | PM.IMPN ---
Progress Note: A&P Assessment and Plan (1) Cardiac arrest: Code(s): I46.9 - Cardiac arrest, cause unspecified Status: Acute (2) Sepsis: Code(s): A41.9 - Sepsis, unspecified organism Status: Acute (3) Aspiration pneumonia: Code(s): J69.0 - Pneumonitis due to inhalation of food and vomit Status: Acute (4) Anoxic brain injury: Code(s): G93.1 - Anoxic brain damage, not elsewhere classified Status: Acute Plan (1) Cardiac arrest: ?Code(s): I46.9 - Cardiac arrest, cause unspecified ?Status:?Acute ?Assessment and Plan: Etiology unclear but suspect related to drug abuse/overdose. Unclear how long she was down; could be up to 15 minutes. ROSC achieved after 2 rounds of CPR and epinephrine. Chest CTA was negative for pulmonary embolism. QT was prolonged on initial EKG and will be monitored. Echocardiogram ordered for tomorrow. She has been started on targeted temperature management per automotive wholesale parts advisor. 01/23: on TTM per automotive wholesale parts advisor. Appreciate consultation and recommendations (2) Acute respiratory failure: ?Code(s): J96.00 - Acute respiratory failure, unspecified whether with hypoxia or hypercapnia ?Status:?Acute ?Assessment and Plan: Secondary to aspiration pneumonia and arrest. Intubated and on mechanical ventilation per automotive wholesale parts advisor. 01/23: Intubated on mechanical ventilation. Appreciate automotive wholesale parts advisor consultation Had a respiratory alkalosis due to hyperventilation from previous vent settings. rate on vent was dropped from 24 to 16. now repeat abg tbd. paralyzed and breathing at 16 in sync with vent. flow volume loops show closed breathing pattern without breath stacking peep 5, rate 16, tv 350, fi 02 0.30, with abg o2 sat ~99% on versed, cisatricurium, and propofol drips normotensive (3) Anoxic brain injury: ?Code(s): G93.1 - Anoxic brain damage, not elsewhere classified ?Status:?Acute ?Assessment and Plan: Findings are concerning for anoxic brain injury given lack of purposeful movement. Currently on TTN per automotive wholesale parts advisor as detailed above. Reassess neurologic status after warming. (4) Sepsis: ?Code(s): A41.9 - Sepsis, unspecified organism ?Status:?Acute ?Assessment and Plan: Secondary to aspiration pneumonia and urinary tract infection. Blood pressures are stable, not requiring vasopressors at this time. Continue empiric Zosyn pending urine and blood cultures. 01/23: wbc trending down on zosyn. ct. (5) Aspiration pneumonia: ?Code(s): J69.0 - Pneumonitis due to inhalation of food and vomit ?Status:?Acute ?Assessment and Plan: CT scan shows findings concerning for aspiration pneumonia. Continue Zosyn as above. Send sputum for culture. 01/23: ct zosyn. pending sputum cx (6) Urinary tract infection: ?Code(s): N39.0 - Urinary tract infection, site not specified ?Status:?Acute ?Assessment and Plan: Urine is positive for 4+ bacteria, leukocyte esterase, and increased number of WBCs. Continue Zosyn pending urine culture. (7) Acute kidney injury: ?Code(s): N17.9 - Acute kidney failure, unspecified ?Status:?Acute ?Assessment and Plan: Due to a combination of factors including cardiac arrest, hypotension, and rhabdomyolysis. No hydronephrosis noted on CT scan. Almodovar catheter inserted for strict I/O. On bicarbonate drip for rhabdomyolysis. 01/23: elevated cr resolving. 1.10 today (8) Rhabdomyolysis: ?Code(s): M62.82 - Rhabdomyolysis ?Status:?Acute ?Assessment and Plan: Secondary to cardiac arrest with downtime and perhaps related to methamphetamines as well. Continue bicarbonate drip. Trend creatinine kinase. 01/23: CK 9200, but pt is on d5 1/2n with 20K at 125 ml/hr (9) Elevated troponin: ?Code(s): R79.89 - Other specified abnormal findings of blood chemistry ?Status:?Acute ?Assessment and Plan: Likely due to cardiac arrest and r
[2023-01-23] MEDS: CALCIUM GLUC 2,000 MG/NS 100ML 2,000 MG/100 ML BAG 100 MG IVPB (08:10)
[2023-01-23] MEDS: CISATRACURIUM BESYLATE 20 MG/10 ML VIAL 10 MG IV PUSH (08:11)
[2023-01-23] MEDS: CISATRACURIUM BESYLATE 200 MG in DEXTROSE 5% 80 ML 5.65 ML IV CONT ×2 (08:11→08:26)
[2023-01-23] MEDS: levETIRAcetam 1000MG/NACL100ML 1,000 MG/100 ML BAG 400 MG IVPB ×2 (08:12→20:48)
[2023-01-23] MEDS: MINERAL OIL/WHITE PETROLATUM OINTMENT 1 APPLIC EACH EYE ×2 (08:14→20:50)
[2023-01-23] MEDS: PANTOPRAZOLE SODIUM IV 40 MG VIAL IV PUSH (08:14)
[2023-01-23] MEDS: ASPIRIN 325 MG TABLET FEED TUBE (08:18)
[2023-01-23] MEDS: ENOXAPARIN 40 MG/0.4 ML SYRINGE SUB-Q (08:18)
--- NOTE | 2023-01-23 08:29 | WPDINTPN ---
Progress Note: A&P Assessment and Plan (1) Cardiac arrest: Code(s): I46.9 - Cardiac arrest, cause unspecified Status: Acute Assessment and Plan: Unclear etiology but most likely drug abuse or overdose. Patient was also hypoglycemic at the presentation side although the hypoglycemia has resolved at this time. CTA of the chest is negative for PE EKG reviewed shows prolonged QT. will repeat EKG this time to reassess QT interval Treatment of sepsis as below Pending echocardiogram, continue aspirin TTM protocol for anoxic brain injury ICU telemetry monitoring (2) Sepsis: Code(s): A41.9 - Sepsis, unspecified organism Status: Acute Assessment and Plan: Sepsis secondary to aspiration pneumonia and UTI Continue IV fluids. Not requiring vasopressors at this time Urine and blood culture sent Empiric Zosyn to cover for both (3) Aspiration pneumonia: Code(s): J69.0 - Pneumonitis due to inhalation of food and vomit Status: Acute Assessment and Plan: See above (4) Anoxic brain injury: Code(s): G93.1 - Anoxic brain damage, not elsewhere classified Status: Acute Assessment and Plan: Patient comatose on arrival to ER. On holding sedation patient does not do any purposeful movement suggestive of anoxic brain injury. Although there is no proven benefit TTM protocol in in cardiac arrest from non shockable rhythm will proceed with TTM protocol and keep temperature less than 36 C for next 24 hours as long as patient tolerates. Propofol and Versed ordered for sedation. Plan to start Nimbex infusion Empiric Keppra Will reassess after rewarming (5) Acute kidney injury: Code(s): N17.9 - Acute kidney failure, unspecified Status: Acute Assessment and Plan: Acute kidney injury likely secondary to cardiac arrest hypotension and rhabdomyolysis Check urine electrolytes CT scan of abdomen does not show any hydronephrosis Monitor urine output electrolytes and creatinine IV fluids for the rhabdomyolysis She was on bicarb for metabolic acidosis but now off (6) Rhabdomyolysis: Code(s): M62.82 - Rhabdomyolysis Status: Acute Assessment and Plan: CK level worse. Will continue IV fluids and monitor levels Will paralyzed patient as rhabdo getting worse likely secondary to shivering (7) Polysubstance abuse: Code(s): F19.10 - Other psychoactive substance abuse, uncomplicated Status: Acute Assessment and Plan: History of opioid (fentanyl/heroin) and meth abuse and urine drug screen positive for amphetamines Monitor at this time supportive care (8) Elevated troponin: Code(s): R79.89 - Other specified abnormal findings of blood chemistry Status: Acute Assessment and Plan: Elevated troponin likely secondary to cardiac arrest CPR and respiratory failure EKG reviewed he is in no ST elevation is an QTC prolongation that was present on presentation has resolved Continue aspirin Pending echocardiogram (9) Metabolic acidosis: Code(s): E87.20 - Acidosis, unspecified Status: Acute Assessment and Plan: Resolved with iV fluids with bicarb Bicarb DC (10) Electrolyte abnormality: Code(s): E87.8 - Other disorders of electrolyte and fluid balance, not elsewhere classified Status: Acute Assessment and Plan: Low potassium level is being replaced. Will recheck later today Bicarb discontinued (11) Hypoglycemia: Code(s): E16.2 - Hypoglycemia, unspecified Status: Acute Assessment and Plan: Blood sugars have been on the low side since presentation and patient has been on dextrose infusion which has led to improvement in glucose levels. I will start patient on tube feeds Plan DVT prophylaxis -Lovenox Stress ulcer prophylaxis -Protonix Nutrition -start tube feeds Code Status - Full Code Total Critical Care Time - 32 minutes Due to a high probability of clinically
[2023-01-23 09:09] LABS: Glucose Point of Care 91 mg/dl (65-105)
[2023-01-23 09:09] LABS: Glucose Point of Care 105 mg/dl (65-105)
[2023-01-23] MEDS: ENOXAPARIN 30 MG/0.3 ML SYRINGE 20 MG SUB-Q (09:16)
[2023-01-23 10:02] LABS: Glucose Point of Care 92 mg/dl (65-105)
[2023-01-23 11:49] LABS: Glucose Point of Care 74 mg/dl (65-105)
[2023-01-23] MEDS: PIPERACILLN/TAZ 3.375GM/NS50ML 3.375 GM/50 ML BAG IVPB ×2 (12:50→17:13)
[2023-01-23 13:01] LABS: Lactic Acid Reflex 1.6 mmol/L (0.7-2.0)
--- NOTE | 2023-01-23 13:09 | ECHO_ITS ---
Patient Info Name: Diane Gonzalez Age: 27 years : 1995 Gender: Female Ht: 66 in Wt: 120 lbs BSA: 1.59 m2 HR: 111 bpm BP: 121 / 91 mmHg Heart Rhythm: Tachycardia Technical Quality: Good Exam Date: 01/23/2023 8:07 AM Exam Location: Echo Lab Patient Status: Inpatient Admit Date: 01/22/2023 Staff Ordering Physician: Bruce Gomes MD Insecticide Mixer: Sharon Huber RDCS Attending Provider: Lolis Pompa MD Exam Type: CA echo doppler color flow Study Info Indications - Cardiac Arrest Complete two-dimensional, color flow and Doppler transthoracic echocardiogram is performed. Summary 1. Complete two-dimensional, color flow and Doppler transthoracic echocardiogram is performed. 2. Left ventricular chamber dimension is normal. 3. Left ventricular systolic function is mildly reduced, estimated at 45-50%. 4. The anteroseptal wall appears hypokinetic. 5. The left ventricular diastolic function is grade I diastolic dysfunction. 6. Right ventricular systolic function is normal. 7. There is mild tricuspid valve regurgitation. Left Ventricle The anteroseptal wall appears hypokinetic. Left ventricular chamber dimension is normal. Left ventricular systolic function is mildly reduced, estimated at 45-50%. There is no increased left ventricular wall thickness. Left ventricular septal wall motion is abnormal with septal motion related to bundle branch block. The left ventricular diastolic function is grade I diastolic dysfunction. Right Ventricle Right ventricular chamber dimension is normal. Right ventricular systolic function is normal. Left Atria Left atrial chamber dimension is normal. Right Atria Right atrial chamber dimension is normal. Atrial Septum Intact interatrial septum visualized by color flow imaging. Aortic Valve The aortic valve is trileaflet. There is no aortic valve stenosis. There is no aortic valve regurgitation. Pulmonic Valve The pulmonic valve is not well visualized. Mitral Valve There is trace mitral valve regurgitation. Tricuspid Valve There is mild tricuspid valve regurgitation. Pericardium/Pleural There is no pericardial effusion. Inferior Vena Cava Dilated inferior vena cava with <50% collapse upon inspiration consistent with elevated right atrial pressure, 15 mmHg. Aorta The aortic root size at the sinus of Valsalva is normal. Left Ventricular Outflow Tract Name Value Normal LVOT 2D LVOT Diameter 2.0 cm LVOT Doppler LVOT Peak Gradient 2 mmHg LVOT Mean Gradient 1 mmHg LVOT VTI 11 cm LVOT VTI/AV VTI Ratio 0.9 LVOT Stroke Volume 33 ml LVOT CO 3.2 l/min LVOT CI 2.0 l/min/m2 Pulmonic Valve Name Value Normal RVOT Doppler RVOT Peak Gradient 1 mmHg PV Doppler
[2023-01-23 13:32] LABS: Glucose Point of Care 76 mg/dl (65-105)
[2023-01-23 13:32] LABS: Glucose Point of Care 88 mg/dl (65-105)
[2023-01-23 14:20] LABS: Glucose Point of Care 70 mg/dl (65-105)
[2023-01-23 14:35] LABS: Anion Gap 6 mmol/L (8-16); Blood Urea Nitrogen 22 mg/dL (7-17); Calcium 7.7 mg/dL (8.4-10.2); Carbon Dioxide 26 mmol/L (22-30); Chloride 107 mmol/L (98-107); Estimated CRCL calculation 70 ml/min; Estimated Glomerular Filt Rate > 60; Glucose 108 mg/dL (65-110); Lactic Acid Reflex 1.9 mmol/L (0.7-2.0); Magnesium 2.1 mg/dL (1.6-2.3); Potassium 3.6 mmol/L (3.4-5.0); Sodium 139 mmol/L (137-145)
[2023-01-23 15:34] LABS: Glucose Point of Care 75 mg/dl (65-105)
[2023-01-23 17:27] LABS: Glucose Point of Care 82 mg/dl (65-105)
[2023-01-23 17:27] LABS: Glucose Point of Care 83 mg/dl (65-105)
[2023-01-23] MEDS: DEXTROSE 50% 25 GM/50 ML SYRINGE IV PUSH (18:07)
[2023-01-23 18:44] LABS: Glucose Point of Care 155 mg/dl (65-105)
[2023-01-23 19:48] LABS: Glucose Point of Care 101 mg/dl (65-105)
[2023-01-23 19:48] LABS: Glucose Point of Care 68 mg/dl (65-105)
[2023-01-23 20:14] LABS: Anion Gap 5 mmol/L (8-16); Blood Urea Nitrogen 20 mg/dL (7-17); Calcium 7.5 mg/dL (8.4-10.2); Carbon Dioxide 26 mmol/L (22-30); Chloride 107 mmol/L (98-107); Estimated CRCL calculation 77 ml/min; Estimated Glomerular Filt Rate > 60; Glucose 86 mg/dL (65-110); Phosphorus 2.7 mg/dL (2.5-4.5); Potassium 3.4 mmol/L (3.4-5.0); Sodium 138 mmol/L (137-145)
[2023-01-23] MEDS: ENOXAPARIN 60 MG/0.6 ML SYRINGE SUB-Q (20:50)
[2023-01-23 22:02] LABS: Glucose Point of Care 84 mg/dl (65-105)
[2023-01-24] VITALS (32 sets, daily range): BP systolic 120–146; BP diastolic 74–96; PULSE 44–117; RESP 18–26; TEMP 35.8–37.9; O2SAT 96–100
[2023-01-24] MEDS: PIPERACILLN/TAZ 3.375GM/NS50ML 3.375 GM/50 ML BAG IVPB ×4 (01:11→18:57)
[2023-01-24 01:19] LABS: Glucose Point of Care 80 mg/dl (65-105)
[2023-01-24 05:16] LABS: Alveolar/Arterial O2 Gradient 34.6 mmHg; Base Excess ABG -1.1 mEq/l (+/-2.0); Carboxyhemoglobin 0.3 % THb (0-2.0); Device VENTILATOR; Fractional Inspired Oxygen 21 %; HCO3 ABG 22.5 mEq/l (22.0-26.0); Methemoglobin ABG 0.5 %THb (0-1.5); Modified Allen's Test Pass; Oxygen Saturation ABG 95.5 % (95.0-100.0); PCO2 ABG 34.1 mmHg (35.0-45.0); PO2 ABG 74.3 mmHg (80.0-100.0); PO2 FiO2 Ratio Arterial Blood 3.54 %; Reduced Hemoglobin 5.2 %THb (0-5.0); Site Drawn RIGHT RADIAL; Total Hemoglobin 12.8 g/dL (12.0-18.0); pH ABG 7.437 (7.350-7.450)
[2023-01-24 05:16] LABS: Glucose Point of Care 107 mg/dl (65-105)
[2023-01-24 05:17] LABS: Arterial Blood Gas Vent Mode CMV; Arterial Blood Gas Ventilator rate 18 /MIN
[2023-01-24 05:18] LABS: Arterial Blood Gas PEEP 5 cmH2O; Arterial Blood Gas Tidal Volume 350 ml
[2023-01-24] MEDS: PROPOFOL IV EMULSION 100 ML 16.38 MG IV CONT (05:47)
[2023-01-24] MEDS: CENTRAL LINE FLUSH 10 ML IV PUSH ×3 (05:48→21:57)
[2023-01-24] MEDS: KCL 20 MEQ/D5/0.45% SOD CHL 1,000 ML 125 ML IV CONT (05:48)
[2023-01-24 06:20] LABS: Basophils Percent Auto 0.4 % (0.2-1.2); Eosinophils Absolute Auto 0.1 K/mm3 (0-0.3); Eosinophils Percent Auto 0.9 % (0-4.4); Hemoglobin 11.3 g/dL (12.0-15.0); Immature Granulocyte Absolute 0.03 K/mm3 (0.00-0.031); Immature Granulocyte Percent A 0.3 % (0-0.5); Lymphocytes Absolute Auto 1.68 K/mm3 (0.9-3.2); Lymphocytes Percent Auto 16.6 % (18.3-44.2); Mean Corpuscular HGB Conc 32.3 g/dl (32-36); Mean Corpuscular Hemoglobin 29.9 pg (26-34); Mean Corpuscular Volume 92.6 fl (80-100); Mean Platelet Volume 10.4 fl (7.4-10.4); Monocytes Absolute Auto 0.5 K/mm3 (0.1-0.6); Monocytes Percent Auto 4.7 % (2.6-8.5); Neutrophils Absolute Auto 7.8 K/mm3 (1.3-6.7); Neutrophils Percent Auto 77.1 % (45.5-73.1); Platelet Count Result 155 k/mm3 (150-375); Red Blood Count 3.78 M/mm3 (4.2-5.4); Red Cell Distribution Width 14.1 % (11.5-14.5); White Blood Count 10.1 K/mm3 (4.5-10.0)
[2023-01-24 06:29] LABS: Magnesium 1.9 mg/dL (1.6-2.3); Phosphorus 2.6 mg/dL (2.5-4.5); Triglycerides 82 mg/dL (<150)
[2023-01-24 06:37] LABS: Anion Gap 4 mmol/L (8-16); Blood Urea Nitrogen 15 mg/dL (7-17); Calcium 7.4 mg/dL (8.4-10.2); Carbon Dioxide 25 mmol/L (22-30); Chloride 110 mmol/L (98-107); Estimated CRCL calculation 77 ml/min; Estimated Glomerular Filt Rate > 60; Glucose 93 mg/dL (65-110); Potassium 3.9 mmol/L (3.4-5.0); Sodium 139 mmol/L (137-145)
[2023-01-24 06:41] LABS: INR 1.3; Prothrombin Time 16.5 Seconds (11.1-14.7)
[2023-01-24 06:42] LABS: Partial Thromboplastin Time 35.1 SECONDS (22.3-36.8)
[2023-01-24 07:08] LABS: Creatine Kinase 3667 U/L (30-135)
[2023-01-24] MEDS: CALCIUM GLUC 2,000 MG/NS 100ML 2,000 MG/100 ML BAG 100 MG IVPB (07:50)
--- NOTE | 2023-01-24 07:56 | WPDINTPN ---
Progress Note: A&P Assessment and Plan (1) Cardiac arrest: Code(s): I46.9 - Cardiac arrest, cause unspecified Status: Acute Assessment and Plan: Unclear etiology but most likely drug abuse or overdose. Patient was also hypoglycemic at the presentation side although the hypoglycemia has resolved at this time. CTA of the chest is negative for PE EKG reviewed shows prolonged QT. repeat EKG showed normalization of QT interval Treatment of sepsis as below continue aspirin, low-dose Lovenox TTM protocol for anoxic brain injury as below ICU telemetry monitoring Echo Summary ? 1. Complete two-dimensional, color flow and Doppler transthoracic echocardiogram is performed. ? 2. Left ventricular chamber dimension is normal. ? 3. Left ventricular systolic function is mildly reduced, estimated at 45-50%. ? 4. The anteroseptal wall appears hypokinetic. ? 5. The left ventricular diastolic function is grade I diastolic dysfunction. ? 6. Right ventricular systolic function is normal. ? 7. There is mild tricuspid valve regurgitation. (2) Sepsis: Code(s): A41.9 - Sepsis, unspecified organism Status: Acute Assessment and Plan: Sepsis secondary to aspiration pneumonia and UTI Continue IV fluids but decrease rate. Not requiring vasopressors at this time Urine and blood culture sent. Urine cultures growing Gram-negative bacilli Continue empiric Zosyn to cover for both (3) Aspiration pneumonia: Code(s): J69.0 - Pneumonitis due to inhalation of food and vomit Status: Acute Assessment and Plan: See above (4) Anoxic brain injury: Code(s): G93.1 - Anoxic brain damage, not elsewhere classified Status: Acute Assessment and Plan: Patient comatose on arrival to ER. On holding sedation patient does not do any purposeful movement suggestive of anoxic brain injury. Although there is no proven benefit TTM protocol in in cardiac arrest from non shockable rhythm will proceed with TTM protocol and keep temperature less than 36 C for next 24 hours as long as patient tolerates. Patient was sedated with propofol and Versed ordered for sedation and paralyzed with nimbex infusion 01/24 Patient now has been rewarming. Off paralytic I will discontinue Versed and propofol and evaluated neuro exam Continue empiric Keppra Depending on her neuro status will check C repeat CT scan and EEG (5) Acute kidney injury: Code(s): N17.9 - Acute kidney failure, unspecified Status: Acute Assessment and Plan: Acute kidney injury likely secondary to cardiac arrest hypotension and rhabdomyolysis Creatinine has normalized CK level is improving CT scan of abdomen does not show any hydronephrosis Monitor urine output electrolytes and creatinine IV fluids for the rhabdomyolysis She was on bicarb for metabolic acidosis but now off (6) Rhabdomyolysis: Code(s): M62.82 - Rhabdomyolysis Status: Acute Assessment and Plan: CK level improving. Will continue IV fluids but decrease dose Patient off of neuromuscular blockers now (7) Polysubstance abuse: Code(s): F19.10 - Other psychoactive substance abuse, uncomplicated Status: Acute Assessment and Plan: History of opioid (fentanyl/heroin) and meth abuse and urine drug screen positive for amphetamines Monitor at this time supportive care Patient's mother confirmed use of fentanyl heroin and meth. Viral hepatitis panel negative. will screen for HIV (8) Elevated troponin: Code(s): R79.89 - Other specified abnormal findings of blood chemistry Status: Acute Assessment and Plan: Elevated troponin likely secondary to cardiac arrest CPR and respiratory failure EKG reviewed and showed no ST elevation. QTC prolongation that was present on presentation has resolved Echocardiogram reviewed and does not show any significant wall motion abnormality continue aspirin. Patient also on therapeutic dose of Lovenox
[2023-01-24] MEDS: PANTOPRAZOLE SODIUM IV 40 MG VIAL IV PUSH ×2 (08:42→20:08)
[2023-01-24] MEDS: MINERAL OIL/WHITE PETROLATUM OINTMENT 1 APPLIC EACH EYE ×2 (08:42→20:08)
[2023-01-24] MEDS: levETIRAcetam 1000MG/NACL100ML 1,000 MG/100 ML BAG 400 MG IVPB ×2 (08:42→20:08)
[2023-01-24] MEDS: ASPIRIN 325 MG TABLET FEED TUBE (08:42)
[2023-01-24] MEDS: ENOXAPARIN 60 MG/0.6 ML SYRINGE SUB-Q (08:42)
[2023-01-24 08:55] LABS: HIV 1/2 Ab P24 Ag Result Negative (Negative)
--- NOTE | 2023-01-24 08:59 | PM.IMPN ---
Progress Note: A&P Assessment and Plan (1) Cardiac arrest: Code(s): I46.9 - Cardiac arrest, cause unspecified Status: Acute (2) Sepsis: Code(s): A41.9 - Sepsis, unspecified organism Status: Acute (3) Aspiration pneumonia: Code(s): J69.0 - Pneumonitis due to inhalation of food and vomit Status: Acute (4) Anoxic brain injury: Code(s): G93.1 - Anoxic brain damage, not elsewhere classified Status: Acute Plan (1) Cardiac arrest: ?Code(s): I46.9 - Cardiac arrest, cause unspecified ?Status:?Acute ?Assessment and Plan: Etiology unclear but suspect related to drug abuse/overdose. Unclear how long she was down; could be up to 15 minutes. ROSC achieved after 2 rounds of CPR and epinephrine. Chest CTA was negative for pulmonary embolism. QT was prolonged on initial EKG and will be monitored. Echocardiogram ordered for tomorrow. She has been started on targeted temperature management per comfort filler. 01/23: on TTM per comfort filler. Appreciate consultation and recommendations 01/24: TTM has been stopped around 1400 yesterday. Rewarming starting yesterday and pt is nearly normothermic. Now making spontaneous movements. However pupillary reflexes are sluggish. Neurology consult placed. Not requiring vasopressors and sedation has been stopped. (2) Acute respiratory failure: ?Code(s): J96.00 - Acute respiratory failure, unspecified whether with hypoxia or hypercapnia ?Status:?Acute ?Assessment and Plan: Secondary to aspiration pneumonia and arrest. Intubated and on mechanical ventilation per comfort filler. 01/23: Intubated on mechanical ventilation. Appreciate comfort filler consultation Had a respiratory alkalosis due to hyperventilation from previous vent settings. rate on vent was dropped from 24 to 16. now repeat abg tbd. paralyzed and breathing at 16 in sync with vent. flow volume loops show closed breathing pattern without breath stacking peep 5, rate 16, tv 350, fi 02 0.30, with abg o2 sat ~99% on versed, cisatricurium, and propofol drips normotensive 01/24: On CMV. Rate increased to 18. Unfortunately pt has a respiratory alkalosis. peep 5, rate 18, fio2 0.21, tv 350 ml. abg o2 96%. (3) Anoxic brain injury: ?Code(s): G93.1 - Anoxic brain damage, not elsewhere classified ?Status:?Acute ?Assessment and Plan: Findings are concerning for anoxic brain injury given lack of purposeful movement. Currently on TTN per comfort filler as detailed above. Reassess neurologic status after warming. 01/24: F/u with neurology consult. Pt currently on q12 keppra [address] scan ordered for 01/25. (4) Sepsis: ?Code(s): A41.9 - Sepsis, unspecified organism ?Status:?Acute ?Assessment and Plan: Secondary to aspiration pneumonia and urinary tract infection. Blood pressures are stable, not requiring vasopressors at this time. Continue empiric Zosyn pending urine and blood cultures. 01/23: wbc trending down on zosyn. ct. 01/24: Urine cx positive for gram negative bacilli. ct zosyn until sensitivities. (5) Aspiration pneumonia: ?Code(s): J69.0 - Pneumonitis due to inhalation of food and vomit ?Status:?Acute ?Assessment and Plan: CT scan shows findings concerning for aspiration pneumonia. Continue Zosyn as above. Send sputum for culture. 01/23: ct zosyn. pending sputum cx (6) Urinary tract infection: ?Code(s): N39.0 - Urinary tract infection, site not specified ?Status:?Acute ?Assessment and Plan: Urine is positive for 4+ bacteria, leukocyte esterase, and increased number of WBCs. Continue Zosyn pending urine culture. 01/24: Urine cx positive for gram negative bacilli. ct zosyn until sensitivities. (7) Acute kidney injury: ?Code(s): N17.9 - Acute kidney failure, unspecified ?Status:?Acute ?Assessment and Plan: Due to a combination of factors including cardiac arrest, hypotension, and rhab
--- NOTE | 2023-01-24 09:59 | PM.CNCAR ---
Assessment and Plan Assessment and plan (1) Elevated troponin: Code(s): R79.89 - Other specified abnormal findings of blood chemistry Status: Acute Plan This is an unfortunate 27-year-old woman was brought in from [facility] presumably because of narcotic overdose and unresponsive following resuscitation. The patient has been appropriately resuscitated and placed on hypothermia protocol which is now been completed. She remains without purposeful responsiveness in the ICU. Following this event her echocardiogram shows modestly reduced left ventricular systolic function. We have no information as to what a baseline echo might look like however in the setting of cardiac arrest with presumed drug overdose and unclear down time I do not think these echocardiographic findings are unexpected. I do not have any specific cardiac recommendations to make at this time. Jayy Garay MD [facility] History of Present Illness History of Present Illness Consult date/time: 01/24/23 09:59 Reason For Visit: Cardiac Arrest/Aspiration Pneumonia/Poss Methamphe Narrative: This is a 27-year-old patient who I am seeing in the ICU, room 5. I was paged to see her status this morning and upon arrival evaluate her. She apparently is a patient with a significant history of drug abuse who was found in the [facility] cell in [facility] yesterday in unresponsive state. Apparently she was found without a pulse and EMS was called. She was resuscitated, intubated and brought to the ICU yesterday. She was placed on hypothermia protocol and has now been re warmed. She is being seen at the request of the public health dentist because of echocardiographic findings yesterday. She has left ventricular systolic function by echo that it looks to be slightly below normal with an ejection fraction of 45-50%. According to the staff taking care of her and the family she has history of abuse of fentanyl heroin and methamphetamine. She was apparently in the [facility] after being arrested on illicit drug charges. According to the father who was in the room she does not have any other significant medical problems that he is aware of. She is still intubated and unresponsive although she is moving all extremities now but no purposeful movement has been identified. Review of Systems Review of Systems: ROS unobtainable: Yes unobtainable due to endotracheal tube and unobtainable due to mental status PMFSH Past Medical History Medical History (Updated 01/23/23 @ 08:36 by Bruce Gomes MD) Asthma Surgical History Surgical History (Updated 01/22/23 @ 18:13 by Honey Fink PA-C) No history of previous surgery Family History Family History (Updated 01/22/23 @ 18:13 by Honey Fink PA-C) Other Substance abuse Social History Social History (Updated 01/22/23 @ 18:14 by Honey Fink PA-C) Social History: Surrogate medical decision maker: Marylu Gonzalez, mother ([phone]). Code status: Full code. Smoking status: Current every day smoker Alcohol intake: current Substance use: current Substance use type: marijuana, heroin and methamphetamine Other substance usage details: fentanyl last overdose 1 month ago Spiritual care concerns: No Meds Home Medications and Allergies Home Medications Medication Instructions Recorded Confirmed Type No Home Medications 01/22/23 01/22/23 History Allergies Allergy/AdvReac Type Severity Reaction Status Date / Time No Known Allergies Allergy Verified 01/22/23 10:19 Vital Signs Vital Signs - 24 hr 01/23/23 10:51 01/23/23 10:00 01/23/23 11:00 Temperature 36.2 C L 36.0 C L Pulse Rate 92 100 85 Respiratory Rate 18 18 Blood Pressure 136/94 H 134/99 H Pulse Oximetry 100 100 100 Oxygen Delivery Mechanical Ventilation Fraction of Inspired Oxygen 30 01/23/23 10:00 01/23/23 11:24 01/23/23 11:45 Temperature Pulse Rate 100 86 86 Respiratory Rate 18 18 18 Bloo
[2023-01-24] MEDS: PROPOFOL IV EMULSION 100 ML 8.97 MG IV CONT ×2 (10:10→23:27)
[2023-01-24] MEDS: DEXTROSE 50% 25 GM/50 ML SYRINGE IV PUSH ×3 (10:26→15:58)
--- NOTE | 2023-01-24 10:35 | WPDNEURCNPN ---
Assessment and Plan Assessment and plan (1) Cardiac arrest: Code(s): I46.9 - Cardiac arrest, cause unspecified Status: Acute (2) Anoxic brain injury: Code(s): G93.1 - Anoxic brain damage, not elsewhere classified Status: Acute (3) Polysubstance abuse: Code(s): F19.10 - Other psychoactive substance abuse, uncomplicated Status: Acute (4) Acute respiratory failure: Code(s): J96.00 - Acute respiratory failure, unspecified whether with hypoxia or hypercapnia Status: Acute Plan Diane Gonzalez is a 27 year old female with a history of asthma and polysubstance abuse presenting post-cardiac arrest, presumably due to drug overdose. It is unclear how long patient was in asystole, but there is obvious concern for global anoxic brain injury. Sedation (propofol/versed) was weaned off yesterday but restarted this morning (only propofol). She was also cooled for 24 hrs, and was rewarmed last night. I would wait until 72 hrs after rewarming to avoiding any residual affects from cooling/sedation. Agree with repeat CT head in the next few days to see if there are any significant subacute changes that would also be supportive of anoxic brain injury. Routine EEG can also be obtained to evaluate background activity. Consult date: 01/24/23 Reason for consult: Post-cardiac arrest HPI: Diane Gonzalez is a 27 year old female with a history of asthma and polysubstance abuse presenting post-cardiac arrest. On day of presentation (01/22), patient was found unresponsive in [facility]. It is unclear how long she was down. EMS was called and patient was asystolic. She was resuscitated and eventually ROSC was achieved. On arrival to [place] ED she was intuated. CT head did not show any acute changes. During admission there were resports of non-purposeful movements, but patient remained comatose despite not requiring any sedation on admission. She was ulatimey started on propofol and versed, which was eventually weaned off. She was also on paralytic because of elevated CK due to shivering, which was discontinued yesterday. She was cooled to < 36 degrees for about 24 hours. She is currently being treated for possible aspiration pneumonia. She has been empirically started on Keppra, although there have been no reports of seizure like activity. Of note patient has a history of known heroin and methamphetamine use. Her UDS from this admission was positive for methamphetamine. According to patient's nurse, patient was cooled last night around 2200 (01/23). She was restarted on propofol this morning. Review of Systems Review of Systems: ROS unobtainable: Yes unobtainable due to medical condition and unobtainable due to mental status PMFSH Past Medical History Medical History Asthma Surgical History Surgical History No history of previous surgery Family History Family History Other Substance abuse Social History Social History Social History: Surrogate medical decision maker: Marylu Gonzalez, mother ([phone]). Code status: Full code. Smoking status: Current every day smoker Alcohol intake: current Substance use: current Substance use type: marijuana, heroin and methamphetamine Other substance usage details: fentanyl last overdose 1 month ago Spiritual care concerns: No Meds Home Medications and Allergies Home Medications Medication Instructions Recorded Confirmed Type No Home Medications 01/22/23 01/22/23 History Allergies Allergy/AdvReac Type Severity Reaction Status Date / Time No Known Allergies Allergy Verified 01/22/23 10:19 Vital Signs Vital Signs - 24 hr 01/23/23 10:51 01/23/23 11:00 01/23/23 11:24 Temperature 36.0 C L Pulse Rate 92 85 86 Respiratory Rate 18
[2023-01-24 10:43] LABS: Glucose Point of Care 66 mg/dl (65-105)
[2023-01-24 10:43] LABS: Glucose Point of Care 124 mg/dl (65-105)
[2023-01-24 11:30] LABS: Glucose Point of Care 88 mg/dl (65-105)
[2023-01-24 13:20] LABS: Glucose Point of Care 75 mg/dl (65-105)
[2023-01-24 13:40] LABS: Glucose Point of Care 67 mg/dl (65-105)
[2023-01-24 14:07] LABS: Glucose Point of Care 129 mg/dl (65-105)
[2023-01-24 16:51] LABS: Glucose Point of Care 164 mg/dl (65-105)
[2023-01-24 16:51] LABS: Glucose Point of Care 97 mg/dl (65-105)
[2023-01-24 16:51] LABS: Glucose Point of Care 68 mg/dl (65-105)
[2023-01-24] MEDS: GLUCAGON FOR INJ 1 MG VIAL IM (17:31)
[2023-01-24 17:48] LABS: Glucose Point of Care 59 mg/dl (65-105)
[2023-01-24 17:48] LABS: Glucose Point of Care 65 mg/dl (65-105)
[2023-01-24 17:48] LABS: Glucose Point of Care 71 mg/dl (65-105)
[2023-01-24 17:48] LABS: Glucose Point of Care 51 mg/dl (65-105)
[2023-01-24 18:06] LABS: Glucose Point of Care 74 mg/dl (65-105)
[2023-01-24 18:06] LABS: Glucose Point of Care 70 mg/dl (65-105)
[2023-01-24 18:06] LABS: Glucose Point of Care 114 mg/dl (65-105)
[2023-01-24 20:01] LABS: Glucose Point of Care 89 mg/dl (65-105)
[2023-01-24] MEDS: KCL 20 MEQ/D5/0.45% SOD CHL 1,000 ML 75 ML IV CONT (20:09)
[2023-01-24 22:02] LABS: Glucose Point of Care 75 mg/dl (65-105)
[2023-01-25] VITALS (36 sets, daily range): BP systolic 100–144; BP diastolic 73–96; PULSE 50–96; RESP 18–38; TEMP 35.7–37.2; O2SAT 94–100
[2023-01-25 00:08] LABS: Glucose Point of Care 81 mg/dl (65-105)
[2023-01-25] MEDS: PIPERACILLN/TAZ 3.375GM/NS50ML 3.375 GM/50 ML BAG IVPB ×2 (00:08→05:32)
[2023-01-25] MEDS: FENTANYL 2,500MCG/NS250ML(*CRX 2,500 MCG/250 ML BAG IV CONT (00:22)
[2023-01-25 02:19] LABS: Glucose Point of Care 86 mg/dl (65-105)
[2023-01-25 04:25] LABS: Glucose Point of Care 108 mg/dl (65-105)
[2023-01-25] MEDS: PROPOFOL IV EMULSION 100 ML 17.94 MG IV CONT ×3 (04:44→21:58)
[2023-01-25 04:52] LABS: Alveolar/Arterial O2 Gradient 8.5 mmHg; Base Excess ABG -0.7 mEq/l (+/-2.0); Carboxyhemoglobin 0.2 % THb (0-2.0); Fractional Inspired Oxygen 21 %; HCO3 ABG 24.3 mEq/l (22.0-26.0); Methemoglobin ABG 0.3 %THb (0-1.5); Oxygen Content ABG 15.2 %vol (16.0-22.0); Oxyhemoglobin 95.7 % THb (90.0-100.0); PO2 ABG 92.1 mmHg (80.0-100.0); PO2 FiO2 Ratio Arterial Blood 4.39 %; Reduced Hemoglobin 3.8 %THb (0-5.0); Total Hemoglobin 11.2 g/dL (12.0-18.0)
[2023-01-25 04:54] LABS: Device VENTILATOR; Modified Allen's Test Pass; Site Drawn RIGHT RADIAL
[2023-01-25 04:55] LABS: Arterial Blood Gas PEEP 5 cmH2O; Arterial Blood Gas Tidal Volume 350 ml; Arterial Blood Gas Vent Mode CMV; Arterial Blood Gas Ventilator rate 18 /MIN
[2023-01-25] MEDS: CENTRAL LINE FLUSH 10 ML IV PUSH ×2 (05:32→17:39)
[2023-01-25 05:36] LABS: Basophils Percent Auto 0.6 % (0.2-1.2); Eosinophils Absolute Auto 0.1 K/mm3 (0-0.3); Eosinophils Percent Auto 1.3 % (0-4.4); Hematocrit 30.1 % (37.0-47.0); Hemoglobin 9.4 g/dL (12.0-15.0); Immature Granulocyte Absolute 0.02 K/mm3 (0.00-0.031); Immature Granulocyte Percent A 0.4 % (0-0.5); Lymphocytes Absolute Auto 1.75 K/mm3 (0.9-3.2); Lymphocytes Percent Auto 32.7 % (18.3-44.2); Mean Corpuscular HGB Conc 31.2 g/dl (32-36); Mean Corpuscular Hemoglobin 30.1 pg (26-34); Mean Corpuscular Volume 96.5 fl (80-100); Mean Platelet Volume 10.4 fl (7.4-10.4); Monocytes Absolute Auto 0.3 K/mm3 (0.1-0.6); Neutrophils Absolute Auto 3.2 K/mm3 (1.3-6.7); Platelet Count Result 122 k/mm3 (150-375); Red Blood Count 3.12 M/mm3 (4.2-5.4); Red Cell Distribution Width 14.5 % (11.5-14.5); White Blood Count 5.4 K/mm3 (4.5-10.0)
[2023-01-25 05:49] LABS: INR 1.1; Prothrombin Time 14.9 Seconds (11.1-14.7)
[2023-01-25 05:50] LABS: Anion Gap 4 mmol/L (8-16); Blood Urea Nitrogen 9 mg/dL (7-17); Calcium 7.7 mg/dL (8.4-10.2); Carbon Dioxide 25 mmol/L (22-30); Chloride 113 mmol/L (98-107); Creatine Kinase > 1600 U/L (30-135); Estimated CRCL calculation 112 ml/min; Estimated Glomerular Filt Rate > 60; Glucose 87 mg/dL (65-110); Magnesium 1.7 mg/dL (1.6-2.3); Partial Thromboplastin Time 32.2 SECONDS (22.3-36.8); Phosphorus 3.4 mg/dL (2.5-4.5); Potassium 3.7 mmol/L (3.4-5.0); Sodium 142 mmol/L (137-145)
[2023-01-25 06:10] LABS: Glucose Point of Care 75 mg/dl (65-105)
[2023-01-25 06:47] LABS: Glucose Point of Care 75 mg/dl (65-105)
[2023-01-25] MEDS: MAGNESIUM SULF 2 GM/WATER 50ML 2 GM/50 ML BAG IVPB (07:40)
--- NOTE | 2023-01-25 07:49 | PM.IMPN ---
Progress Note: A&P Assessment and Plan (1) Cardiac arrest: Code(s): I46.9 - Cardiac arrest, cause unspecified Status: Acute (2) Sepsis: Code(s): A41.9 - Sepsis, unspecified organism Status: Acute (3) Aspiration pneumonia: Code(s): J69.0 - Pneumonitis due to inhalation of food and vomit Status: Acute (4) Anoxic brain injury: Code(s): G93.1 - Anoxic brain damage, not elsewhere classified Status: Acute Plan (1) Cardiac arrest: ?Code(s): I46.9 - Cardiac arrest, cause unspecified ?Status:?Acute ?Assessment and Plan: Etiology unclear but suspect related to drug abuse/overdose. Unclear how long she was down; could be up to 15 minutes. ROSC achieved after 2 rounds of CPR and epinephrine. Chest CTA was negative for pulmonary embolism. QT was prolonged on initial EKG and will be monitored. Echocardiogram ordered for tomorrow. She has been started on targeted temperature management per manager gas. 01/23: on TTM per manager gas. Appreciate consultation and recommendations 01/24: TTM has been stopped around 1400 yesterday. Rewarming starting yesterday and pt is nearly normothermic. Now making spontaneous movements. However pupillary reflexes are sluggish. Neurology consult placed. Not requiring vasopressors and sedation has been stopped. 01/25: Appreciate neurology consultation from Dr. Louis EEG scheduled for tomorrow. CT head non con scheduled for today to evaluate subacute changes of anoxic brain injury. Plan for MRI noncon if pt is extubated. Evaluate pt's neurological status on a lower dose of Keppra ideally, or off Keppra if she does not need it, as well as off propofol (2) Acute respiratory failure: ?Code(s): J96.00 - Acute respiratory failure, unspecified whether with hypoxia or hypercapnia ?Status:?Acute ?Assessment and Plan: Secondary to aspiration pneumonia and arrest. Intubated and on mechanical ventilation per manager gas. 01/23: Intubated on mechanical ventilation. Appreciate manager gas consultation Had a respiratory alkalosis due to hyperventilation from previous vent settings. rate on vent was dropped from 24 to 16. now repeat abg tbd. paralyzed and breathing at 16 in sync with vent. flow volume loops show closed breathing pattern without breath stacking peep 5, rate 16, tv 350, fi 02 0.30, with abg o2 sat ~99% on versed, cisatricurium, and propofol drips normotensive 01/24: On CMV. Rate increased to 18. Unfortunately pt has a respiratory alkalosis. peep 5, rate 18, fio2 0.21, tv 350 ml. abg o2 96%. 01/25: same vent settings as yesterday. (3) Anoxic brain injury: ?Code(s): G93.1 - Anoxic brain damage, not elsewhere classified ?Status:?Acute ?Assessment and Plan: Findings are concerning for anoxic brain injury given lack of purposeful movement. Currently on TTN per manager gas as detailed above. Reassess neurologic status after warming. 01/24: F/u with neurology consult. Pt currently on q12 keppra [address] scan ordered for 01/25. 01/25: See above. (4) Sepsis: ?Code(s): A41.9 - Sepsis, unspecified organism ?Status:?Acute ?Assessment and Plan: Secondary to aspiration pneumonia and urinary tract infection. Blood pressures are stable, not requiring vasopressors at this time. Continue empiric Zosyn pending urine and blood cultures. 01/23: wbc trending down on zosyn. ct. 01/24: Urine cx positive for gram negative bacilli. ct zosyn until sensitivities. 01/25: Ecoli sensitive to unasyn. De-escalated. This will also cover aspiration pneumonia. (5) Aspiration pneumonia: ?Code(s): J69.0 - Pneumonitis due to inhalation of food and vomit ?Status:?Acute ?Assessment and Plan: CT scan shows findings concerning for aspiration pneumonia. Continue Zosyn as above. Send sputum for culture. 01/23: ct zosyn. pending sputum cx 01/24: Sputum cx pending. Early growth appears to be mixed anupama. See ab
--- NOTE | 2023-01-25 08:25 | WPDINTPN ---
Progress Note: A&P Assessment and Plan (1) Cardiac arrest: Code(s): I46.9 - Cardiac arrest, cause unspecified Status: Acute Assessment and Plan: Unclear etiology but most likely drug abuse or overdose. Patient was also hypoglycemic at the presentation side although the hypoglycemia has resolved at this time. CTA of the chest is negative for PE EKG reviewed shows prolonged QT. repeat EKG showed normalization of QT interval Treatment of sepsis as below continue aspirin, prophylactic Lovenox TTM protocol for anoxic brain injury was completed ICU telemetry monitoring Echo Summary ? 1. Complete two-dimensional, color flow and Doppler transthoracic echocardiogram is performed. ? 2. Left ventricular chamber dimension is normal. ? 3. Left ventricular systolic function is mildly reduced, estimated at 45-50%. ? 4. The anteroseptal wall appears hypokinetic. ? 5. The left ventricular diastolic function is grade I diastolic dysfunction. ? 6. Right ventricular systolic function is normal. ? 7. There is mild tricuspid valve regurgitation. Cardiology evaluated the patient further recommendation (2) Sepsis: Code(s): A41.9 - Sepsis, unspecified organism Status: Acute Assessment and Plan: Sepsis secondary to aspiration pneumonia and UTI Continue IV fluids but decrease rate. Not requiring vasopressors at this time Urine and blood culture sent. Urine cultures growing E coli which is sensitive to Zosyn Continue Zosyn to cover for both (3) Hypoglycemia: Code(s): E16.2 - Hypoglycemia, unspecified Status: Acute Assessment and Plan: Blood sugars have been on the low side since presentation and patient has been on dextrose infusion which has led to improvement in glucose levels. Despite D5 water infusion and tube feeds patient did had episode of blood glucose less than 70. Patient's free water flushes was switched to D5 water help with hypoglycemia. This appears likely secondary to poor nutrition and collected in stores as patient does not have diabetes and was in long term with no access to medications to suggest sulfonylurea toxicity. Continue tube feeds. Continue IV fluids with D5 Continue to monitor (4) Aspiration pneumonia: Code(s): J69.0 - Pneumonitis due to inhalation of food and vomit Status: Acute Assessment and Plan: See above (5) Anoxic brain injury: Code(s): G93.1 - Anoxic brain damage, not elsewhere classified Status: Acute Assessment and Plan: Patient comatose on arrival to ER. On holding sedation patient does not do any purposeful movement suggestive of anoxic brain injury. Although there is no proven benefit TTM protocol in in cardiac arrest from non shockable rhythm will proceed with TTM protocol and keep temperature less than 36 C for next 24 hours as long as patient tolerates. Patient was sedated with propofol and Versed ordered for sedation and paralyzed with nimbex infusion 01/24 Patient now has been rewarming Off paralytic 01/24 off sedation patient was moving all 4 extremity but was not following commands or doing any purposeful movements. Patient seen by Neurology 01/[address] done this morning and report pending. On sedation holiday patient does not respond to painful stimuli, patient does over breathe the vent, has weak cough and gag present, withdraws to pain in both lower extremities, no response to pain in both upper extremities, PERRL. EEG ordered for tomorrow. Continue empiric Keppra (6) Acute kidney injury: Code(s): N17.9 - Acute kidney failure, unspecified Status: Acute Assessment and Plan: Acute kidney injury likely secondary to cardiac arrest hypotension and rhabdomyolysis Creatinine has normalized CK level is improving CT scan of abdomen does not show any hydronephrosis Monitor urine output electrolytes and creatinine IV fluids for the rhabdomyolysis She was on bicarb for metabolic acidosis but now off (7) Rhab
[2023-01-25] MEDS: ENOXAPARIN 40 MG/0.4 ML SYRINGE SUB-Q (09:00)
[2023-01-25] MEDS: ASPIRIN 325 MG TABLET FEED TUBE (09:00)
[2023-01-25] MEDS: levETIRAcetam 1000MG/NACL100ML 1,000 MG/100 ML BAG 400 MG IVPB ×2 (09:27→22:01)
[2023-01-25] MEDS: PANTOPRAZOLE SODIUM IV 40 MG VIAL IV PUSH (09:27)
[2023-01-25] MEDS: CALCIUM GLUC 2,000 MG/NS 100ML 2,000 MG/100 ML BAG 100 MG IVPB (09:27)
[2023-01-25] MEDS: POTASSIUM CHLORIDE 20 MEQ PACKET (FOR LIQUID) 40 MEQ FEED TUBE (09:28)
[2023-01-25] MEDS: AMPICILLIN SULB 3 GM/NS 100 ML 3 GM/100 ML VIAL IVPB ×3 (09:28→17:37)
[2023-01-25] MEDS: KCL 20 MEQ/D5/0.45% SOD CHL 1,000 ML 75 ML IV CONT (09:30)
[2023-01-25] MEDS: MINERAL OIL/WHITE PETROLATUM OINTMENT 1 APPLIC EACH EYE (09:30)
[2023-01-25 09:51] LABS: Glucose Point of Care 91 mg/dl (65-105)
[2023-01-25] MEDS: KCL 20 MEQ/D5/0.9% SOD CHL 1,000 ML 100 ML IV CONT (10:31)
[2023-01-25] MEDS: SODIUM CHLORIDE 3% 500 ML 40 ML IV CONT (10:34)
--- NOTE | 2023-01-25 10:46 | WPDNEUROPN ---
Progress Note: A&P Assessment and Plan (1) Cardiac arrest: Code(s): I46.9 - Cardiac arrest, cause unspecified Status: Acute (2) Anoxic brain injury: Code(s): G93.1 - Anoxic brain damage, not elsewhere classified Status: Acute (3) Polysubstance abuse: Code(s): F19.10 - Other psychoactive substance abuse, uncomplicated Status: Acute (4) Acute respiratory failure: Code(s): J96.00 - Acute respiratory failure, unspecified whether with hypoxia or hypercapnia Status: Acute Plan Diane Gonzalez is a 27 year old female with a history of asthma and polysubstance abuse presenting post-cardiac arrest, presumably due to drug overdose. It is unclear how long patient was in asystole, but there is obvious concern for global anoxic brain injury. Versed was weaned off on 01/23, but she has required propofol intermittently. She was also cooled for 24 hrs, and was rewarmed 2200 01/23. I would wait until 72 hrs after rewarming to avoiding any residual affects from cooling/sedation. Routine EEG can also be obtained to evaluate background activity. CT head obtained this morning which unfortunately does show extensive areas injury globally. Subjective Date/time seen: 01/25/23 10:46 Interval history: Diane Gonzalez is a 27 year old female with a history of asthma and polysubstance abuse presenting post-cardiac arrest. On day of presentation (01/22), patient was found unresponsive in [facility]. It is unclear how long she was down. EMS was called and patient was asystolic. She was resuscitated and eventually ROSC was achieved. On arrival to [place] ED she was intuated. CT head did not show any acute changes. During admission there were resports of non-purposeful movements, but patient remained comatose despite not requiring any sedation on admission. She was ulatimey started on propofol and versed, which was eventually weaned off. She was also on paralytic because of elevated CK due to shivering, which was discontinued yesterday. She was cooled to < 36 degrees for about 24 hours. She is currently being treated for possible aspiration pneumonia. She has been empirically started on Keppra, although there have been no reports of seizure like activity. Of note patient has a history of known heroin and methamphetamine use. Her UDS from this admission was positive for methamphetamine. According to patient's nurse, patient was cooled 2200 on 01/23. Sedation was paused this morning. Per nurse, patient was thrashing all extremities but no purposeful movements. She was restarted on propofol. CT head was done this morning, on my read there is extensive hypodense regions in bilateral hemispheres, with more pronounced changes in the R occipital region. Review of Systems Review of Systems: ROS unobtainable: Yes unobtainable due to endotracheal tube, unobtainable due to medical condition and unobtainable due to mental status Exam Const: Other: Sedated HENMT: Mouth: Yes moist mucous membranes Eyes: Other: Pupils 3mm bilaterally, sluggishly reactive Resp: Other: intubated, mechanically ventilated Skin: General skin exam: normal color Neuro: Other: No spontaneous eye opening, no spontaneous movements of the extremities, did not follow commands, no withdrawal of extremities or grimacing to noxious stimuli. Cough and gag is present. Face looks symmetric Extrem: General: normal to inspection Objective Data Vital Signs Vital Signs: Vital Signs - 24 hr 01/24/23 11:02 01/24/23 12:00 01/24/23 11:00 Temperature 37.1 C Pulse Rate 44 L 61 54 L Respiratory Rate 18 18 Blood Pressure 138/92 H Pulse Oximetry 100 99 Oxygen Delivery Mechanical Ventilation Fraction of Inspired Oxygen 21 01/24/23 11:15 01/24/23 13:00 01/24/23 13:15 Temperature Pulse Rate 58 L 92 82 Respiratory Rate 18 19 18 Blood Pressure Pulse Oximetry Oxygen Delivery Fraction of Inspired Oxygen
[2023-01-25 11:04] LABS: Anion Gap 5 mmol/L (8-16); Blood Urea Nitrogen 9 mg/dL (7-17); Calcium 7.8 mg/dL (8.4-10.2); Carbon Dioxide 24 mmol/L (22-30); Chloride 114 mmol/L (98-107); Estimated CRCL calculation 112 ml/min; Estimated Glomerular Filt Rate > 60; Glucose 97 mg/dL (65-110); Potassium 4.6 mmol/L (3.4-5.0); Sodium 143 mmol/L (137-145)
[2023-01-25] MEDS: PROPOFOL IV EMULSION 100 ML 16.15 MG IV CONT (11:37)
[2023-01-25 11:44] LABS: Glucose Point of Care 94 mg/dl (65-105)
--- NOTE | 2023-01-25 13:42 | P.PNCROSS_ITS ---
Event Note Event Note Event Note: His head CT scan reviewed. Suggestive of cerebral edema with ats of possible s troke secondary to anoxic brain injury. I called and spoke to transfer center for both [facility] and [facility]. Spoke to Neurosurgery resident and attending and discussed case with them. Some spoke to Neuro ICU triage regarding transferring patient. [facility] physician do not feel that they have anything additional to offer for this patient's management and did not accept transfer this time. I spoke to [facility] transfer center and then medical ICU physician and similarly they will not accept transfer at this time as they do not believe they have anything additional to add in the patient's management. I have discussed case with John neurologist. Plan to obtain EEG in the morning. I started patient on hypertonic saline, increase RR on the ventilator, resume propofol for sedation, continue neuro checks, monitor sodium levels. Spoke to and updated patient's mother in detail. Discussed with internal medicine physician Additional critical care time 60 minutes
[2023-01-25 13:46] LABS: Glucose Point of Care 101 mg/dl (65-105)
[2023-01-25 14:02] LABS: MRSA (PCR) DETECTED (NOT DETECTE)
[2023-01-25 14:06] LABS: Anion Gap 3 mmol/L (8-16); Blood Urea Nitrogen 8 mg/dL (7-17); Calcium 8.2 mg/dL (8.4-10.2); Carbon Dioxide 23 mmol/L (22-30); Chloride 117 mmol/L (98-107); Estimated CRCL calculation 132 ml/min; Estimated Glomerular Filt Rate > 60; Glucose 100 mg/dL (65-110); Potassium 4.3 mmol/L (3.4-5.0); Sodium 143 mmol/L (137-145)
[2023-01-25 15:50] LABS: Glucose Point of Care 96 mg/dl (65-105)
[2023-01-25] MEDS: DEXTROSE 5%/0.9% SOD CHL 1,000 ML 100 ML IV CONT (16:40)
[2023-01-25 18:11] LABS: Anion Gap 1 mmol/L (8-16); Blood Urea Nitrogen 6 mg/dL (7-17); Calcium 7.9 mg/dL (8.4-10.2); Carbon Dioxide 25 mmol/L (22-30); Chloride 118 mmol/L (98-107); Estimated CRCL calculation 112 ml/min; Estimated Glomerular Filt Rate > 60; Glucose 87 mg/dL (65-110); Sodium 144 mmol/L (137-145)
[2023-01-25] MEDS: MIDAZOLAM HCL (*CRX) 2 MG/2 ML VIAL 4 MG IV PUSH (18:34)
--- NOTE | 2023-01-25 19:17 | PM.TDS ---
Transfer Discharge Sum: Prov Provider Date of admission: 01/22/23 11:40 Primary care physician: none Admitting clinician: Lolis Pompa MD Consults: 01/22/23 11:41 Consult to Physician Routine Comment: Consulting Provider: Bruce Gomes Reason for consultation: intubated Has provider been notified: Yes 01/24/23 Consult to Physician Routine Comment: called exchange with consult information Consulting Provider: Harshil Joshua freight caller/MD group to consult: Cardiology Reason for consultation: anteroseptal wall hypokinesis, cardiac arrest Has provider been notified: Yes Consult to Physician Routine Comment: called application administrator number and left message for consult Consulting Provider: Virginia Louis freight caller/ group to consult: Neurology Reason for consultation: Prognosis, post cardiac arrest. spontaneous movement. sluggish pup. reflex Has provider been notified: Yes Receiving physician/facility: Dr. Anselmo Farris [facility] DS: Admitting Diagnosis Discharge Date 01/25/23 Admitting Diagnosis cardiac arrest DS: Discharge Diagnosis Discharge Diagnosis (1) Acute respiratory failure: Code(s): J96.00 - Acute respiratory failure, unspecified whether with hypoxia or hypercapnia Status: Acute (2) Polysubstance abuse: Code(s): F19.10 - Other psychoactive substance abuse, uncomplicated Status: Acute (3) Anoxic brain injury: Code(s): G93.1 - Anoxic brain damage, not elsewhere classified Status: Acute (4) Aspiration pneumonia: Code(s): J69.0 - Pneumonitis due to inhalation of food and vomit Status: Acute (5) Sepsis: Code(s): A41.9 - Sepsis, unspecified organism Status: Acute (6) Cardiac arrest: Code(s): I46.9 - Cardiac arrest, cause unspecified Status: Acute Plan 01/25: Transfer note Despite the patient's findings of widespread cerebral edema and areas of potential ischemia in the bilateral occipital lobes, the patient had a positive neurological exam when she was off sedation. This exam was conducted on 01/24/2023 when the patient was off propofol sedation completely. The patient had contralateral localization bilaterally in the upper and lower extremities to painful stimulus. The patient made spontaneous movements of the upper and lower extremities bilaterally. The patient squeezed a family member's hands without command. The patient had bilateral pupillary reflexes though they were sluggish. These all indicate that the patient is not a persistent vegetative state and is not in a comatose state. These all indicate that the patient has positive room for recovery despite the findings on the CT scan of widespread cerebral edema and potential bilateral stroke. She would benefit from early neurosurgical and/or neuro sweet pickled fruit maker intervention. She may have a positive slow neurological recovery once she is successfully extubated. The pt was de-escalated from zosyn to unasyn based on urine cx showing sensitivities. The following sputum cx has just returned during this transfer and changes have not been made. The pt did not have an elevated wbc count today. 01/23/23 00:19 Sputum Culture - Preliminary Sputum Staphylococcus aureus Group G Streptococcus CT head noncon 01/25 FINDINGS: There is widespread cerebral edema and loss of almeida-white matter differentiation is the bilateral parietal occipital lobes, the frontal lobes, and posteriorly in the temporal lobes. There is mass effect on the posterior horns of the lateral ventricles. There is no midline shift. The basal cisterns are patent. The orbits are normal. There is mild mucosal thickening of the paranasal sinuses. Progress Note from ICU Physician Dr. Bruce Gomes His head CT scan reviewed.? Suggestive of cerebral edema with ats of possible stroke secondary to anoxic brain injury.? I called and spoke to transfer center for both [facility] and [facility]
[2023-01-25 20:16] LABS: Glucose Point of Care 122 mg/dl (65-105)
--- NOTE | 2023-01-25 20:32 | PC.NURSE ---
2026 Attempted several calls to Mom and Grandmother for consent for transfer; unable to get ahold of family. Due to [facility] ETA of 2029 and unavailability of family Honey BEEBE gave consent for transfer. TRBO verified by Chilo Proctor RN
--- NOTE | 2023-01-25 20:34 | PC.NURSE ---
2030 Leaving another message for Mother with room number at [facility] and she picked up phone. Consent received for transfer and verified by Chilo Proctor RN.
--- NOTE | 2023-01-25 20:48 | PC.NURSE ---
Report called to Holly SUMMERS at [place] neuro unit. Will call when patient has departed from [place].
[2023-01-25 21:36] LABS: Glucose Point of Care 98 mg/dl (65-105)
--- NOTE | 2023-01-26 00:34 | PC.NURSE ---
[facility] arrived at 2130 to transport patient. Loaded onto [facility] stretcher with D5NS, Keppra, 3%saline, fentanyl, and propofol running. This nurse Gisselle Maynard and Chilo Proctor RN accompanied patient to [facility] where patient was handed off to Kathi SUMMERS. trip vitals and rhythm strip in chart.
== END 2023-01-25 22:02 | disposition short-term general hospital (02) | DRG 812 ==
LOC: ANHED 11:37 → ANHICU 12:09
PROVIDERS: Internal Medicine; Physician Assistant; Admitting Provider Internal Medicine; Emergency Provider Emergency Medicine; Visit Provider Internal Medicine
DX: T50.904A Poisoning by unspecified drugs, medicaments and biological substances, undetermined, initial encounter (principal); I46.8 Cardiac arrest due to other underlying condition; J69.0 Pneumonitis due to inhalation of food and vomit; A41.9 Sepsis, unspecified organism; G93.1 Anoxic brain damage, not elsewhere classified; F17.290 Nicotine dependence, other tobacco product, uncomplicated; F12.90 Cannabis use, unspecified, uncomplicated; Z28.21 Immunization not carried out because of patient refusal; N39.0 Urinary tract infection, site not specified; N17.9 Acute kidney failure, unspecified; I95.9 Hypotension, unspecified; M62.82 Rhabdomyolysis; F19.10 Other psychoactive substance abuse, uncomplicated; E87.20 Acidosis, unspecified; E87.8 Other disorders of electrolyte and fluid balance, not elsewhere classified; J96.00 Acute respiratory failure, unspecified whether with hypoxia or hypercapnia; E16.2 Hypoglycemia, unspecified; G93.6 Cerebral edema; B96.20 Unspecified Escherichia coli [E. coli] as the cause of diseases classified elsewhere; B95.61 Methicillin susceptible Staphylococcus aureus infection as the cause of diseases classified elsewhere; I67.82 Cerebral ischemia
CPT/HCPCS: 31500; 36415; 36556; 36600; 70450; 71045; 71275; 72125; 73590; 74177; 80048; 80053; 80074; 80076; 80307; 81001; 82010; 82375; 82550; 82570; 82805; 82948; 83050; 83605; 83735; 84100; 84145; 84300; 84443; 84478; 84484; 85025; 85610; 85652; 85730; 86140; 86703; 87040; 87070; 87077; 87086; 87147; 87181; 87186; 87205; 87641; 93005; 93306; 94002; 94003; 96365; 96367; 99291; A9270; C1751; C9113; G0432; J0295; J0330; J0613; J0696; J1610; J1650; J1836; J1953; J2250; J2543; J2704; J3010; J3370; J3475; J3480; J7030; J7042; J7070; J7131; L0140; Q9967

== ENCOUNTER 2023-06-11 17:22 | Emergency (ER) | payer BC, SELFPAY ==
[2023-06-11 18:00] VITALS: BP 130/82; PULSE 60; RESP 16; TEMP 36.7; O2SAT 100
== END 2023-06-11 18:30 | disposition left against medical advice (07) ==
LOC: ANHED 21:12
DX: S09.90XA Unspecified injury of head, initial encounter (principal); W18.30XA Fall on same level, unspecified, initial encounter
CPT/HCPCS: 99199